=== PATIENT | male | born 1990 | race Caucasian/White ===

== ENCOUNTER 2022-11-20 19:53 | Emergency (ER) | payer MEDICAID, SELFPAY ==
[2022-11-20 20:04] VITALS: BP 160/105; PULSE 133; RESP 18; TEMP 36.6; O2SAT 97; BMI 21.7
--- NOTE | 2022-11-20 20:07 | ED_ITS ---
HPI - General Adult General Chief complaint: ETOH/Substance Use Stated complaint: Alcohol Withdrawal Time Seen by Provider: 11/20/22 22:13 Source: patient Mode of arrival: ambulatory Limitations: no limitations History of Present Illness HPI narrative: Patient with history of alcoholism with strong family history of alcoholism in family , both parents are alcoholic was sober for about 5 years restarted drinking since 03/25 feels stressed at work makes him drink drinking whiskey about 10-12 shots a day and for the last 12 days been drinking heavy last drink was 14:00 as he wants to stop drinking now was little jittery when he arrived received Ativan 2 mg p.o. history of alcohol withdrawal in the past+ no history of DTs or seizure Related Data Previous Rx's Medication Instructions Recorded lorazepam 1 mg tablet (Ativan) 1 mg PO Q4-6H PRN alcohol 11/21/22 withdrawal #20 tabs thiamine HCl (vitamin B1) 100 mg 100 mg PO DAILY #30 tabs 11/21/22 tablet Allergies Allergy/AdvReac Type Severity Reaction Status Date / Time No Known Allergies Allergy Verified 11/20/22 20:06 Review of Systems Review of Systems: Yes all other systems are reviewed and are negative [facility] Social History Social History Alcohol intake: current Alcohol intake frequency: 3 or more drinks per day Alcohol type: hard liquor Smoked in Last 30 Days: Yes Use of substances other than those prescribed or required for medical reasons: Yes Substance Use Type: Marijuana Advance Directives: No Advance Directives Information Provided: No Physical Exam ED Vital Signs: Vital Signs - 24 hr 11/20/22 20:04 11/20/22 21:42 11/20/22 22:20 Temperature 98 F Pulse Rate 133 H 98 88 Respiratory Rate 18 15 131 H Blood Pressure 160/105 H 142/97 H 136/90 H Pulse Oximetry 97 97 96 Oxygen Delivery Method Room Air Room Air 11/20/22 23:55 11/21/22 01:01 Temperature 97.9 F Pulse Rate 110 H 76 Respiratory Rate 22 H 20 Blood Pressure 147/98 H 112/68 Pulse Oximetry 97 95 Oxygen Delivery Method Room Air BMI result Body Mass Index 21.7 Appearance: Alert. Oriented X3. No acute distress. Slightly anxious Eyes: PERRLA, No Nystagmus ENT: Pharynx normal. Oral Mucosa moist Neck: Normal inspection. Neck supple. CVS: Normal heart rate and rhythm. Pulses normal. Respiratory: No respiratory distress. Equal air entry bilateral, no wheezing/rales/rhonchi Abdomen: Soft and nontender. Bowel sounds are present, no mass palpable, no CVA tenderness Skin: Skin warm and dry. Normal skin color. Normal skin turgor. Extremities: No lower extremity edema. No calf tenderness Neuro: Oriented X 3. No motor deficit. No sensory deficit.No cerebellar signs , cranial nerves II-XII intact Course Course Course Narrative: RME- 32 year old male presents for evaluation of alcohol withdrawal. He reports his last drink was 7 hours ago. He reports drinking 10-12 minute per day. He is tachycardic to 130, hypertensive to 160/105. However he appears generally well. Plan for labs, drug screen Medications Administered Discontinued Medications Generic Name Dose Route Start Last Admin Trade Name Freq PRN Reason Stop Dose Admin Sodium Chloride 1,000 mls @ 999 mls/hr 11/20/22 22:29 11/21/22 01:01 Ns IV 11/20/22 23:29 Infused .Q1H1M ONE Infusion Lorazepam 2 mg 11/20/22 21:59 11/20/22 22:03 Lorazepam 1 Mg Tablet PO 11/20/22 22:00 2 mg ONCE ONE Administration Medical Decision Making Medical Decision Making [facility] Narrative: Patient alcoholic and mild withdrawal with CIWA scale of 7 on arrival improved after Ativan to at this time of evaluation patient walking steady gait does not want to go to detox would like to stop drinking and would like to take Ativan as needed patient feels comfortable in doing this office on discharge patient home on Ativan also will give him prescription of thiamine Lab Data [facility] Lab Attestation statement: I reviewed the patient's lab results. 11/20/22 20:32 11/20/22 20:32 Labs: Lab Results 11/20/22 11/20/22 11/20/22 Range/Units 20:32 20:32 20:32 WBC 4.8 (4.8-10.8) X10*3/uL RBC 5.06 (4.60-5.80) X10*6/uL Hgb 15.4 (14.0-18.0) g/dl Hct 44.7 (42.0-52.0) % MCV 88.3 (80.0-98.0) fL MCH 30.4 (27.0-33.0) pg MCHC 34.5 (31.0-36.0) g/dl RDW 12.9 (11.0-16.0) % Plt Count 207 (160-400) X10*3/uL MPV 9.9 (9.4-12.4) fL Immature Gran % (Auto) 0.2 (0.0-0.4) % Neut % (Auto) 41.3 L (45-73) % Lymph % (Auto) 40.2 H (20-40) % [place] % (Auto) 11.7 H (2-11) % Eos % (Auto) 5.6 H (0-4) % Baso % (Auto) 1.0 (0-2) % Lymph # (Auto) 1.9 (1.2-4.9) X10*3/uL [place] # (Auto) 0.6 (0.1-1.2) X10*3/uL Eos # (Auto) 0.3 (0.0-0.4) X10*3/uL Baso # (Auto) 0.1 (0.0-0.2) X10*3/uL Abs Immat Gran (auto) 0.01 (0.00-0.03) X10*3/uL Absolute Neuts (auto) 2.0 (2.0-8.3) x10*3/uL Absolute Nucleated RBC 0.000 (0.0-0.012) X10*3/uL Nucleated RBC % (auto) 0.0 (0.0-0.2) /100WBC Sodium 141 (135-145) mmol/L Potassium 3.5 (3.3-5.1) mmol/L Chloride 107 (96-108) mmol/L Carbon Dioxide 22 (22-29) mmol/L Anion Gap 16 (12-20) BUN 6 L (9-16) mg/dL Creatinine 0.88 (0.5-1.4) mg/dL Estim Creat Clear Calc 123.7 Estimated GFR > 60 Random Glucose 126 H (60-115) mg/dL Calcium 9.2 (8.4-10.2) mg/dL Magnesium 2.1 (1.6-2.6) mg/dL Total Bilirubin 0.9 (0.0-1.0) mg/dL AST 60 H (5-37) U/L ALT 27 (0-40) U/L Alkaline Phosphatase 79 (39-117) U/L Total Protein 7.2 (6.5-8.0) g/dL Albumin 4.5 (3.5-5.0) g/dL Lipase 17 (8-78) U/L Urine Opiates Screen (Not Detect) Urine Fentanyl Screen (Not Detect) Ur Barbiturates Screen (Not Detect) Ur Phencyclidine Scrn (Not Detect) Ur Amphetamines Screen (Not Detect) U Benzodiazepines Scrn (Not Detect) Urine Cocaine Screen (Not Detect) U Marijuana (THC) Screen (Not Detect) Ethyl Alcohol 206 mg/dL 11/20/22 Range/Units 22:21 WBC (4.8-10.8) X10*3/uL RBC (4.60-5.80) X10*6/uL Hgb (14.0-18.0) g/dl Hct (42.0-52.0) % MCV (80.0-98.0) fL MCH (27.0-33.0) pg MCHC (31.0-36.0) g/dl RDW (11.0-16.0) % Plt Count (160-400) X10*3/uL MPV (9.4-12.4) fL Immature Gran % (Auto) (0.0-0.4) % Neut % (Auto) (45-73) % Lymph % (Auto) (20-40) % [place] % (Auto) (2-11) % Eos % (Auto) (0-4) % Baso % (Auto) (0-2) % Lymph # (Auto) (1.2-4.9) X10*3/uL [place] # (Auto) (0.1-1.2) X10*3/uL Eos # (Auto) (0.0-0.4) X10*3/uL Baso # (Auto) (0.0-0.2) X10*3/uL Abs Immat Gran (auto) (0.00-0.03) X10*3/uL Absolute Neuts (auto) (2.0-8.3) x10*3/uL Absolute Nucleated RBC (0.0-0.012) X10*3/uL Nucleated RBC % (auto) (0.0-0.2) /100WBC Sodium (135-145) mmol/L Potassium (3.3-5.1) mmol/L Chloride (96-108) mmol/L Carbon Dioxide (22-29) mmol/L Anion Gap (12-20) BUN (9-16) mg/dL Creatinine (0.5-1.4) mg/dL Estim Creat Clear Calc Estimated GFR Random Glucose (60-115) mg/dL Calcium (8.4-10.2) mg/dL Magnesium (1.6-2.6) mg/dL Total Bilirubin (0.0-1.0) mg/dL AST (5-37) U/L ALT (0-40) U/L Alkaline Phosphatase (39-117) U/L Total Protein (6.5-8.0) g/dL Albumin (3.5-5.0) g/dL Lipase (8-78) U/L Urine Opiates Screen Not Detected (Not Detect) Urine Fentanyl Screen Not Detected (Not Detect) Ur Barbiturates Screen Not Detected (Not Detect) Ur Phencyclidine Scrn Not Detected (Not Detect) Ur Amphetamines Screen Not Detected (Not Detect) U Benzodiazepines Scrn Not Detected (Not Detect) Urine Cocaine Screen Not Detected (Not Detect) U Marijuana (THC) Screen Not Detected (Not Detect) Ethyl Alcohol mg/dL Discharge Plan Discharge Clinical Impression: Alcohol withdrawal syndrome Patient Disposition: Home, Self-Care Instructions: Abuse of Alcohol (ED) Additional Instructions: Stop drinking alcohol Take Ativan 1 tablet every 4-6 hour as needed for alcohol withdrawal also start taking thiamine 100 mg daily Follow-up with detox Prescriptions: New lorazepam [Ativan] 1 mg tablet 1 mg PO Q4-6H PRN (Reason: alcohol withdrawal) Qty: 20 0RF thiamine HCl (vitamin B1) 100 mg tablet 100 mg PO DAILY Qty: 30 0RF
--- NOTE | 2022-11-20 20:09 | ECG_ITS ---
Test Reason : GENERAL MEDICAL Blood Pressure : / mmHG Vent. Rate : 111 BPM Atrial Rate : 111 BPM P-R Int : 148 ms QRS Dur : 084 ms QT Int : 320 ms P-R-T Axes : 055 028 018 degrees QTc Int : 435 ms Sinus tachycardia Otherwise normal ECG No previous ECGs available Referred By: Ángel Mendoza Electronically Signed By:RICH RALPH
--- NOTE | 2022-11-20 20:36 | PC.NURSE ---
IV established, labs obtained. EKG obtained at bedside. Awaiting primary MD nesbitt.
[2022-11-20 20:37] LABS: MANUAL DIFF FLAG NO
[2022-11-20 20:52] LABS: Ethanol 206 mg/dL
[2022-11-20 20:53] LABS: Basophils Absolute Auto 0.1 X10*3/uL (0.0-0.2); Eosinophils Absolute Auto 0.3 X10*3/uL (0.0-0.4); Eosinophils Percent Auto 5.6 % (0-4); Hematocrit 44.7 % (42.0-52.0); Hemoglobin 15.4 g/dl (14.0-18.0); Imm Gran Abs Auto 0.01 X10*3/uL (0.00-0.03); Imm Gran Pct Auto 0.2 % (0.0-0.4); Lymphocytes Absolute Auto 1.9 X10*3/uL (1.2-4.9); Lymphocytes Percent Auto 40.2 % (20-40); Mean Corpuscular HGB Conc 34.5 g/dl (31.0-36.0); Mean Corpuscular Hemoglobin 30.4 pg (27.0-33.0); Mean Corpuscular Volume 88.3 fL (80.0-98.0); Mean Platelet Volume 9.9 fL (9.4-12.4); Monocytes Absolute Auto 0.6 X10*3/uL (0.1-1.2); Monocytes Percent Auto 11.7 % (2-11); Neutrophils Percent Auto 41.3 % (45-73); Platelet Count 207 X10*3/uL (160-400); Red Blood Count 5.06 X10*6/uL (4.60-5.80); Red Cell Distribution Width 12.9 % (11.0-16.0); White Blood Count 4.8 X10*3/uL (4.8-10.8)
[2022-11-20 20:54] LABS: Alanine Aminotransferase 27 U/L (0-40); Albumin Level 4.5 g/dL (3.5-5.0); Alkaline Phosphatase 79 U/L (39-117); Anion Gap 16 (12-20); Aspartate Amino Transferase 60 U/L (5-37); Bilirubin Total 0.9 mg/dL (0.0-1.0); Blood Urea Nitrogen 6 mg/dL (9-16); Calcium 9.2 mg/dL (8.4-10.2); Carbon Dioxide 22 mmol/L (22-29); Chloride 107 mmol/L (96-108); Creatinine Clr Calc Pharmacy 123.7; Estimated Glomerular Filt Rate > 60; Glucose Random 126 mg/dL (60-115); Lipase 17 U/L (8-78); Potassium 3.5 mmol/L (3.3-5.1); Sodium 141 mmol/L (135-145); Total Protein 7.2 g/dL (6.5-8.0)
--- NOTE | 2022-11-20 20:56 | PC.NURSE ---
Assumed care of pt. Pt on stretcher, no acute distress at this time. pt watching television. Plan for assessment.
--- NOTE | 2022-11-20 21:41 | MHC.RECOVSUP ---
? Reason for consult:ETOH o? Current location:ED04? o? Identified substance use concern:? -? Seeking ATS (detox) ? Intervention: o? ATS bed search started/completed/in process o? Community resources provided ? Plan: o ATS ? Additional information:RC met this pt and discussed treatment, pt is interested in ATS, RC started the bedsearch, there are no beds tonight, please continue bedsearch tomorrow. [facility], no beds are available at this time.
[2022-11-20 21:42] VITALS: BP 142/97; PULSE 98; RESP 15; O2SAT 97
[2022-11-20] MEDS: LORazepam 1 MG TABLET 2 MG PO (22:03)
[2022-11-20 22:20] VITALS: BP 136/90; PULSE 88; RESP 131; O2SAT 96
[2022-11-20 22:40] LABS: Amphetamine Screen Urine Not Detected (Not Detect); Barbiturates, Urine Not Detected (Not Detect); Benzodiazepines Screen Urine Not Detected (Not Detect); Cannabinoid Screen Urine Not Detected (Not Detect); Cocaine Screen Urine Not Detected (Not Detect); Fentanyl, urine Not Detected (Not Detect); Opiate Screen Urine Not Detected (Not Detect); Phencyclidine Screen Urine Not Detected (Not Detect)
[2022-11-20 22:46] LABS: Magnesium 2.1 mg/dL (1.6-2.6)
[2022-11-20 23:55] VITALS: BP 147/98; PULSE 110; RESP 22; TEMP 36.6; O2SAT 97
--- NOTE | 2022-11-20 23:56 | MHC.EDTECH ---
This tech assumed care of pt at 2300, Vitals taken,pt is resting comfortably at this time. Call villela within reach
[2022-11-21] MEDS: 0.9 % Sodium Chloride 1,000 ML 999 ML IV (00:05)
--- NOTE | 2022-11-21 00:10 | PC.NURSE ---
on reassessment, pt stating feela improved after aministered medications. Requesting D/C after IVF completed. MD notified.
[2022-11-21 01:01] VITALS: BP 112/68; PULSE 76; RESP 20; O2SAT 95
--- NOTE | 2022-11-21 01:12 | PC.NURSE ---
pt mbulation trial, steady gait, no deficits. AxO x4, pt cleared for D/C by .
== END 2022-11-21 01:17 | disposition home or self-care (01) ==
PROVIDERS: Physician Assistant; Emergency Provider Internal Medicine; PCP Internal Medicine
DX: F10.239 Alcohol dependence with withdrawal, unspecified (principal); Y90.7 Blood alcohol level of 200-239 mg/100 ml; R00.0 Tachycardia, unspecified; Z79.899 Other long term (current) drug therapy
CPT/HCPCS: 36415; 80053; 80307; 83690; 83735; 85025; 93005; 96360; 99284; 99285

== ENCOUNTER 2022-11-29 03:50 | Emergency (ER) | payer MEDICAID, SELFPAY ==
--- NOTE | 2022-11-29 | ECG_ITS ---
Test Reason : DETOX Blood Pressure : / mmHG Vent. Rate : 056 BPM Atrial Rate : 056 BPM P-R Int : 146 ms QRS Dur : 082 ms QT Int : 390 ms P-R-T Axes : 005 031 034 degrees QTc Int : 376 ms Sinus bradycardia Otherwise normal ECG When compared with ECG of 20-NOV-2022 20:27, Vent. rate has decreased BY 55 BPM Referred By: Generic ED Physician Electronically Signed By:Mckinley Dial
[2022-11-29 03:52] VITALS: BP 142/86; PULSE 63; RESP 18; TEMP 36.1; O2SAT 100; BMI 20.3
[2022-11-29 04:16] VITALS: BP 131/85; PULSE 56; RESP 16; TEMP 36.8; O2SAT 98
[2022-11-29 04:34] LABS: Basophils Percent Auto 0.7 % (0-2); Eosinophils Absolute Auto 0.2 X10*3/uL (0.0-0.4); Eosinophils Percent Auto 5.7 % (0-4); Hematocrit 47.8 % (42.0-52.0); Hemoglobin 16.2 g/dl (14.0-18.0); Imm Gran Abs Auto 0.02 X10*3/uL (0.00-0.03); Imm Gran Pct Auto 0.5 % (0.0-0.4); Lymphocytes Absolute Auto 1.4 X10*3/uL (1.2-4.9); Lymphocytes Percent Auto 33.3 % (20-40); MANUAL DIFF FLAG NO; Mean Corpuscular HGB Conc 33.9 g/dl (31.0-36.0); Mean Corpuscular Hemoglobin 29.8 pg (27.0-33.0); Mean Platelet Volume 9.7 fL (9.4-12.4); Monocytes Absolute Auto 0.5 X10*3/uL (0.1-1.2); Monocytes Percent Auto 11.8 % (2-11); Platelet Count 181 X10*3/uL (160-400); Red Blood Count 5.43 X10*6/uL (4.60-5.80); Red Cell Distribution Width 12.7 % (11.0-16.0); White Blood Count 4.2 X10*3/uL (4.8-10.8)
[2022-11-29 04:39] VITALS: BP 124/86; PULSE 59; RESP 14; TEMP 36.7; O2SAT 98
[2022-11-29 04:47] LABS: COVID-19 Test Negative (Negative); IDNOW Serial# BCCEAD1C
[2022-11-29 04:49] LABS: Appearance Urine Clear; Color Urine Yellow; Glucose Urine UA Negative (Negative); Leukocyte Esterase Urine Negative (Negative); Nitrite Urine Negative (Negative); Specific Gravity - Urine <= 1.005 (1.005-1.025); Urine Blood Negative (Negative); Urine Ketones Negative (Negative); Urine Protein Negative (Neg-Trace)
--- NOTE | 2022-11-29 04:49 | PC.NURSE ---
Pt arrive to ED c/o headache 12/10 pain, anxiety and unable to sleep for 2days. Last drink was 11/20/2022, declines hx of seizures/withdrawl. Pt alert and oriented x 4, denies n/v/hallucinations/tactile disturbance, no tremors noted. EKG complete, labs and urine sent to lab. Pt waiting to be seen by provider at this time, oriented to room, call villela given.
[2022-11-29 04:50] LABS: Amphetamine Screen Urine Not Detected (Not Detect); Barbiturates, Urine Not Detected (Not Detect); Benzodiazepines Screen Urine Not Detected (Not Detect); Cannabinoid Screen Urine Not Detected (Not Detect); Cocaine Screen Urine Not Detected (Not Detect); Fentanyl, urine Not Detected (Not Detect); Opiate Screen Urine Not Detected (Not Detect); Phencyclidine Screen Urine Not Detected (Not Detect)
[2022-11-29 04:52] LABS: Alanine Aminotransferase 22 U/L (0-40); Albumin Level 4.8 g/dL (3.5-5.0); Alkaline Phosphatase 77 U/L (39-117); Anion Gap 14 (12-20); Aspartate Amino Transferase 23 U/L (5-37); Bilirubin Total 1.1 mg/dL (0.0-1.0); Blood Urea Nitrogen 9 mg/dL (9-16); Calcium 10.3 mg/dL (8.4-10.2); Carbon Dioxide 25 mmol/L (22-29); Chloride 106 mmol/L (96-108); Creatinine Clr Calc Pharmacy 125.9; Estimated Glomerular Filt Rate > 60; Ethanol < 10 mg/dL; Glucose Random 101 mg/dL (60-115); Potassium 3.9 mmol/L (3.3-5.1); Sodium 141 mmol/L (135-145); Total Protein 7.5 g/dL (6.5-8.0)
--- NOTE | 2022-11-29 15:53 | ED_ITS ---
HPI - Psych General Chief Complaint: ETOH/Substance Use Stated Complaint: can't sleep, migraine Time Seen by Provider: 11/29/22 05:34 Source: patient Mode of arrival: ambulatory Limitations: no limitations History of Present Illness HPI Narrative: 32 y/o male who presented to the emergency department for evaluation insomnia, restlessness and anxiety times two days. The patient was seen in the emergency department on 11/20/2022 for alcohol withdrawal. At that time he reported drinking 12 nips of alcohol per day. He was treated with Ativan in the ED and discharge to home with a prescription for Ativan 1 mg pills every 4-6 hours as needed for withdrawal symptoms. He was dispensed 20 pills. He states that he has completed his Ativan and has not had any alcoholic beverages since his last visit. He states that he is having difficulty sleeping at night. He states that he gets about two to three hours of sleep. He states he's feeling very anxious. He also states this feeling depressed. He denies suicidal or homicidal ideation. The patient states that he has been on antidepressants in the past but they made him gain weight and this made him more depressed therefore he is not on any antidepressants and is not interested in being treated with antidepressants. Related Data Previous Rx's Medication Instructions Recorded lorazepam 1 mg tablet (Ativan) 1 mg PO Q4-6H PRN alcohol 11/21/22 withdrawal #20 tabs thiamine HCl (vitamin B1) 100 mg 100 mg PO DAILY #30 tabs 11/21/22 tablet Allergies Allergy/AdvReac Type Severity Reaction Status Date / Time No Known Allergies Allergy Verified 11/20/22 20:06 Review of Systems Review of Systems: Yes all other systems are reviewed and are negative [facility] Past Medical History [facility] Narrative: PMH:Alcohol use disorder, depression, anxiety. SHX: He smokes 10 cigarettes per day. He drinks 12 nips of liquor per day but stoped drinking since 11/20/22. He denied drug use. Social History Social History Alcohol intake: current Alcohol intake frequency: 3 or more drinks per day Alcohol type: hard liquor Smoked in Last 30 Days: Yes Use of substances other than those prescribed or required for medical reasons: No Substance Use Type: Marijuana Advance Directives: No Advance Directives Information Provided: No Physical Exam Vital Signs: Vital Signs: Last Vital Signs Temp 98.0 F 11/29/22 04:39 Pulse 59 11/29/22 04:39 Resp 14 11/29/22 04:39 BP 124/86 11/29/22 04:39 Pulse Ox 98 11/29/22 04:39 O2 Del Method Room Air 11/29/22 04:39 BMI result Body Mass Index 20.3 Vital signs were normal General: Awake, alert in no distress Head: Normocephalic, atraumatic EENT: PERRL, Lids normal, sclera normal, conjunctiva normal, nose normal , ears normal, throat without erythema or exudates Neck: Supple, no adenopathy, trachea midline and nontender Lung: breath sounds symmetric, no wheezing, rales or rhonchi Chest: symmetric movement, nontender Heart: regular rate and rhythm, normal S1, S2 no murmurs or rubs Abdomen: soft, non-tender, nondistended, normal bowel sounds Back: no vertebral tenderness, no CVAT Extremities: no deformities, moves all extremities symmetrically Skin: no rashes, no lesion, normal color and warmth Neuro: Awake, alert, oriented, normal speech, cranial nerves intact, moves all extremities symmetrically Psych: Pleasant, cooperative Medical Decision Making Medical Decision Making MDM Narrative: 32 y/o male who presented to the emergency department for evaluation insomnia, restlessness and anxiety times two days. The patient was seen in the emergency department on 11/20/2022 for alcohol withdrawal. He was discharge to home with a prescription for Ativan 1 mg pills every 4-6 hours as needed for withdrawal symptoms. He has not drank alcohol since then. He denied SI or HI. I ordered a CBC, CMP, EtOH level, UA, Utox, COVID 19. 0700: The patient's work up was negative suggesting a psychiatric cause for his insomnia and anxiety. I did offer to start trazadone for depression and insomnia but he refused this treatment. He has been on hydroxyzine in the past therefore I gave him an Rx for hydroxyzine 100 mg at night as needed for insomnia He does not want detox at this time. He was advised to seek help at [facility] for depression and anxiety. 1613: Unexpected downtime at the end of my shift, therefore patient was given paper d/c instructions and paper Rx Differential Diagnosis Differential Diagnoses: The differential diagnosis associated with the presentation includes SI, HI, Depression, EtOH intoxication, poly substance use, anemia, electrolyte abnormalities Admission/Observation Consideration of admission/observation: Escalation of care including admission/o bservation considered Lab Data MDM Lab Attestation statement: I reviewed the patient's lab results. My interpertion of the patient's labs are as follows. CBC, CMP is normal. Urine tox was negative. EtOH level was below detectable limits. COVId was negative. These negative tests are reassuring and suggest psychatric cause as for his insomnia. 11/29/22 04:26 11/29/22 04:26 Labs: Lab Results 11/29/22 11/29/22 11/29/22 Range/Units 04:26 04:26 04:26 WBC 4.2 L (4.8-10.8) X10*3/uL RBC 5.43 (4.60-5.80) X10*6/uL Hgb 16.2 (14.0-18.0) g/dl Hct 47.8 (42.0-52.0) % MCV 88.0 (80.0-98.0) fL MCH 29.8 (27.0-33.0) pg MCHC 33.9 (31.0-36.0) g/dl RDW 12.7 (11.0-16.0) % Plt Count 181 (160-400) X10*3/uL MPV 9.7 (9.4-12.4) fL Immature Gran % (Auto) 0.5 H (0.0-0.4) % Neut % (Auto) 48.0 (45-73) % Lymph % (Auto) 33.3 (20-40) % [place] % (Auto) 11.8 H (2-11) % Eos % (Auto) 5.7 H (0-4) % Baso % (Auto) 0.7 (0-2) % Lymph # (Auto) 1.4 (1.2-4.9) X10*3/uL [place] # (Auto) 0.5 (0.1-1.2) X10*3/uL Eos # (Auto) 0.2 (0.0-0.4) X10*3/uL Baso # (Auto) 0.0 (0.0-0.2) X10*3/uL Abs Immat Gran (auto) 0.02 (0.00-0.03) X10*3/uL Absolute Neuts (auto) 2.0 (2.0-8.3) x10*3/uL Absolute Nucleated RBC 0.000 (0.0-0.012) X10*3/uL Nucleated RBC % (auto) 0.0 (0.0-0.2) /100WBC Sodium 141 (135-145) mmol/L Potassium 3.9 (3.3-5.1) mmol/L Chloride 106 (96-108) mmol/L Carbon Dioxide 25 (22-29) mmol/L Anion Gap 14 (12-20) BUN 9 (9-16) mg/dL Creatinine 0.81 (0.5-1.4) mg/dL Estim Creat Clear Calc 125.9 Estimated GFR > 60 Random Glucose 101 (60-115) mg/dL Calcium 10.3 H D (8.4-10.2) mg/dL Total Bilirubin 1.1 H (0.0-1.0) mg/dL AST 23 (5-37) U/L ALT 22 (0-40) U/L Alkaline Phosphatase 77 (39-117) U/L Total Protein 7.5 (6.5-8.0) g/dL Albumin 4.8 (3.5-5.0) g/dL Urine Color Urine Appearance Urine pH (5.0-9.0) Ur Specific [place] (1.005-1.025) Urine Protein (Neg-Trace) mg/dL Urine Glucose (UA) (Negative) mg/dL Urine Ketones (Negative) mg/dL Urine Blood (Negative) Urine Nitrite (Negative) Ur Leukocyte Esterase (Negative) Urine Opiates Screen (Not Detect) Urine Fentanyl Screen (Not Detect) Ur Barbiturates Screen (Not Detect) Ur Phencyclidine Scrn (Not Detect) Ur Amphetamines Screen (Not Detect) U Benzodiazepines Scrn (Not Detect) Urine Cocaine Screen (Not Detect) U Marijuana (THC) Screen (Not Detect) Ethyl Alcohol < 10 mg/dL COVID-19 (JUANY) Negative (Negative) COVID-19 Clin Com See Note 11/29/22 11/29/22 Range/Units 04:26 04:40 WBC (4.8-10.8) X10*3/uL RBC (4.60-5.80) X10*6/uL Hgb (14.0-18.0) g/dl Hct (42.0-52.0) % MCV (80.0-98.0) fL MCH (27.0-33.0) pg MCHC (31.0-36.0) g/dl RDW (11.0-16.0) % Plt Count (160-400) X10*3/uL MPV (9.4-12.4) fL Immature Gran % (Auto) (0.0-0.4) % Neut % (Auto) (45-73) % Lymph % (Auto) (20-40) % [place] % (Auto) (2-11) % Eos % (Auto) (0-4) % Baso % (Auto) (0-2) % Lymph # (Auto) (1.2-4.9) X10*3/uL [place] # (Auto) (0.1-1.2) X10*3/uL Eos # (Auto) (0.0-0.4) X10*3/uL Baso # (Auto) (0.0-0.2) X10*3/uL Abs Immat Gran (auto) (0.00-0.03) X10*3/uL Absolute Neuts (auto) (2.0-8.3) x10*3/uL Absolute Nucleated RBC (0.0-0.012) X10*3/uL Nucleated RBC % (auto) (0.0-0.2) /100WBC Sodium (135-145) mmol/L Potassium (3.3-5.1) mmol/L Chloride (96-108) mmol/L Carbon Dioxide (22-29) mmol/L Anion Gap (12-20) BUN (9-16) mg/dL Creatinine (0.5-1.4) mg/dL Estim Creat Clear Calc Estimated GFR Random Glucose (60-115) mg/dL Calcium (8.4-10.2) mg/dL Total Bilirubin (0.0-1.0) mg/dL AST (5-37) U/L ALT (0-40) U/L Alkaline Phosphatase (39-117) U/L Total Protein (6.5-8.0) g/dL Albumin (3.5-5.0) g/dL Urine Color Yellow Urine Appearance Clear Urine pH 6.0 (5.0-9.0) Ur Specific [place] <= 1.005 (1.005-1.025) Urine Protein Negative (Neg-Trace) mg/dL Urine Glucose (UA) Negative (Negative) mg/dL Urine Ketones Negative (Negative) mg/dL Urine Blood Negative (Negative) Urine Nitrite Negative (Negative) Ur Leukocyte Esterase Negative (Negative) Urine Opiates Screen Not Detected (Not Detect) Urine Fentanyl Screen Not Detected (Not Detect) Ur Barbiturates Screen Not Detected (Not Detect) Ur Phencyclidine Scrn Not Detected (Not Detect) Ur Amphetamines Screen Not Detected (Not Detect) U Benzodiazepines Scrn Not Detected (Not Detect) Urine Cocaine Screen Not Detected (Not Detect) U Marijuana (THC) Screen Not Detected (Not Detect) Ethyl Alcohol mg/dL COVID-19 (JUANY) (Negative) COVID-19 Clin Com Prescription Management antidepressant medications Chronic Conditions Alcohol use disorder, depression and anxiety Social Determinants Patient?s care significantly limited by Social Determinants of Health including: Other Social Determinant of Health (alcohol use disorder) Discharge Plan Discharge Clinical Impression: Insomnia, Depression, Alcohol use disorder Patient Disposition: Home, Self-Care Prescriptions: No Action lorazepam [Ativan] 1 mg tablet 1 mg PO Q4-6H PRN (Reason: alcohol withdrawal) Qty: 20 0RF thiamine HCl (vitamin B1) 100 mg tablet 100 mg PO DAILY Qty: 30 0RF Discharge Date/Time: 11/29/22 07:00
== END 2022-11-29 07:00 | disposition home or self-care (01) ==
PROVIDERS: Emergency Provider Emergency Medicine Emergency Medical Services
DX: G47.00 Insomnia, unspecified (principal); F33.1 Major depressive disorder, recurrent, moderate; F10.10 Alcohol abuse, uncomplicated; Y90.0 Blood alcohol level of less than 20 mg/100 ml; Z20.822 Contact with and (suspected) exposure to COVID-19; Z20.828 Contact with and (suspected) exposure to other viral communicable diseases; Z79.899 Other long term (current) drug therapy
CPT/HCPCS: 80053; 80307; 81003; 85025; 87635; 93005; 99284; 99285

== ENCOUNTER 2023-02-03 04:21 | Emergency (ER) | payer MEDICAID, SELFPAY ==
--- NOTE | ~2023-02-03 | US_ITS ---
EXAMINATION: US SCROTUM CLINICAL INFORMATION: Pain. COMPARISON: None available. TECHNIQUE: A sonogram of the scrotum was performed assessing le-scale appearance and color Doppler flow. Spectral Doppler analysis of the arterial and venous flow were performed in the testes bilaterally. FINDINGS: RIGHT: Right testicle measures 4.9 x 2.0 x 3.0 cm, volume 14.8 mL. No focal testicular parenchymal lesions are visualized. Spectral Doppler analysis of the arterial and venous flow is normal in the right testis. There is a 4 mm right epididymal head cyst. No right hydrocele or varicocele is seen. Right epididymal Doppler flow is normal. LEFT: Left testicle measures 4.8 x 1.9 x 3.0 cm, volume 14.8 mL. No focal testicular parenchymal lesions are visualized. Spectral Doppler analysis of the arterial and venous flow is normal in the left testis. Left epididymal head is normal in size. No left hydrocele or varicocele is seen. Left epididymal Doppler flow is normal. US/US scrotum doppler IMPRESSION: Normal testicles.
--- NOTE | ~2023-02-03 | US_ITS ---
EXAMINATION: US SCROTUM CLINICAL INFORMATION: Pain. COMPARISON: None available. TECHNIQUE: A sonogram of the scrotum was performed assessing le-scale appearance and color Doppler flow. Spectral Doppler analysis of the arterial and venous flow were performed in the testes bilaterally. FINDINGS: RIGHT: Right testicle measures 4.9 x 2.0 x 3.0 cm, volume 14.8 mL. No focal testicular parenchymal lesions are visualized. Spectral Doppler analysis of the arterial and venous flow is normal in the right testis. There is a 4 mm right epididymal head cyst. No right hydrocele or varicocele is seen. Right epididymal Doppler flow is normal. LEFT: Left testicle measures 4.8 x 1.9 x 3.0 cm, volume 14.8 mL. No focal testicular parenchymal lesions are visualized. Spectral Doppler analysis of the arterial and venous flow is normal in the left testis. Left epididymal head is normal in size. No left hydrocele or varicocele is seen. Left epididymal Doppler flow is normal. US/US scrotum IMPRESSION: Normal testicles.
[2023-02-03 04:28] VITALS: BP 155/112; PULSE 113; RESP 19; TEMP 36.6; O2SAT 97; BMI 24.7
[2023-02-03 04:45] VITALS: BP 138/92; PULSE 99; RESP 16; TEMP 36.8; O2SAT 100
--- NOTE | 2023-02-03 05:06 | ED_ITS ---
HPI - Male Genitourinary General Chief complaint: Urogenital-Male Stated complaint: Testicles pain Time Seen by Provider: 02/03/23 05:06 Source: patient Mode of arrival: ambulatory Limitations: no limitations History of Present Illness HPI Narrative: Patient history of anxiety complaining of pain in left testicle just prior to arrival. A few hours ago patient was seen at [facility] or lower abdominal discomfort and difficulty in urination but patient bladder scan was negative after discharge from the hospital patient noticed pain in the left testicle no nausea no vomiting pain has no relation with posture no swelling of the testicles no penile discharge Related Data Previous Rx's Medication Instructions Recorded lorazepam 1 mg tablet (Ativan) 1 mg PO Q4-6H PRN alcohol 11/21/22 withdrawal #20 tabs thiamine HCl (vitamin B1) 100 mg 100 mg PO DAILY #30 tabs 11/21/22 tablet Allergies Allergy/AdvReac Type Severity Reaction Status Date / Time No Known Allergies Allergy Verified 11/20/22 20:06 Review of Systems Review of Systems: Yes all other systems are reviewed and are negative [facility] Social History Social History Alcohol intake: current Alcohol intake frequency: 3 or more drinks per day Alcohol type: hard liquor Substance Use Type: Marijuana Advance Directives: No Advance Directives Information Provided: Yes Physical Exam Vital Signs: Vital Signs: Last Vital Signs Temp 98.2 F 02/03/23 05:57 Pulse 72 02/03/23 05:57 Resp 18 02/03/23 05:57 BP 128/80 02/03/23 05:57 Pulse Ox 98 02/03/23 05:57 O2 Del Method Room Air 02/03/23 05:57 BMI result Body Mass Index 24.7 Appearance: Alert. Oriented X3. Anxious CVS: Normal heart rate and rhythm. Pulses normal. Respiratory: No respiratory distress. Equal air entry bilateral, Abdomen: Soft and nontender. Bowel sounds are present, no mass palpable, no CVA tenderness : Normal position of testicles cremasteric reflex normal epididymis normal no mass noticed no tenderness of the testicle Skin: Skin warm and dry. Normal skin color. Normal skin turgor. Extremities: No lower extremity edema. No calf tenderness Neuro: Oriented X 3. No motor deficit. Medical Decision Making Medical Decision Making MDM Narrative: Patient ultrasound is negative for torsion or any brow the patient patient home on ibuprofen Differential Diagnosis Differential Diagnoses: The differential diagnosis associated with the presentation includes Testicular torsion/normal exam/epididymitis/varicocele Lab Data [facility] Lab Attestation statement: I reviewed the patient's lab results. Labs: Lab Results 02/03/23 Range/Units 05:18 Urine Color Yellow Urine Appearance Clear Urine pH 6.5 (5.0-9.0) Ur Specific [place] 1.010 (1.005-1.025) Urine Protein Negative (Neg-Trace) mg/dL Urine Glucose (UA) Negative (Negative) mg/dL Urine Ketones Negative (Negative) mg/dL Urine Blood Negative (Negative) Urine Nitrite Negative (Negative) Ur Leukocyte Esterase Negative (Negative) Radiology Impression Discussion of test interpretation with radiology: I have reviewed the radiologist's reading. Discharge Plan Discharge Clinical Impression: Epididymal cyst Patient Disposition: Home, Self-Care Instructions: Testicle Pain (ED) Additional Instructions: No torsion seen neuro ultrasound Take Tylenol/Motrin for pain if any Prescriptions: No Action lorazepam [Ativan] 1 mg tablet 1 mg PO Q4-6H PRN (Reason: alcohol withdrawal) Qty: 20 0RF thiamine HCl (vitamin B1) 100 mg tablet 100 mg PO DAILY Qty: 30 0RF Interventions: ED Discharge Assessment Last Done: 02/03/23 06:22 Discharge Date/Time: 02/03/23 06:23
[2023-02-03 05:25] LABS: Appearance Urine Clear; Color Urine Yellow; Glucose Urine UA Negative (Negative); Leukocyte Esterase Urine Negative (Negative); Nitrite Urine Negative (Negative); PH 6.5 (5.0-9.0); Urine Blood Negative (Negative); Urine Ketones Negative (Negative); Urine Protein Negative (Neg-Trace)
[2023-02-03 05:57] VITALS: BP 128/80; PULSE 72; RESP 18; TEMP 36.8; O2SAT 98
== END 2023-02-03 06:23 | disposition home or self-care (01) ==
PROVIDERS: Emergency Provider Internal Medicine
DX: N50.3 Cyst of epididymis (principal); N50.812 Left testicular pain; N50.811 Right testicular pain; R10.2 Pelvic and perineal pain
CPT/HCPCS: 76870; 81003; 93975; 99283; 99284

== ENCOUNTER 2023-02-17 22:28 | Emergency (ER) | payer MEDICAID, SELFPAY ==
[2023-02-17 22:44] VITALS: BP 144/93; PULSE 116; RESP 20; TEMP 36.2; O2SAT 97; BMI 24.4
[2023-02-17 23:36] LABS: MANUAL DIFF FLAG NO
[2023-02-17 23:45] LABS: Basophils Absolute Auto 0.1 X10*3/uL (0.0-0.2); Basophils Percent Auto 0.5 % (0-2); Eosinophils Absolute Auto 0.3 X10*3/uL (0.0-0.4); Eosinophils Percent Auto 3.3 % (0-4); Hematocrit 48.4 % (42.0-52.0); Imm Gran Abs Auto 0.03 X10*3/uL (0.00-0.03); Imm Gran Pct Auto 0.3 % (0.0-0.4); Lymphocytes Absolute Auto 2.2 X10*3/uL (1.2-4.9); Lymphocytes Percent Auto 22.7 % (20-40); Mean Corpuscular HGB Conc 35.1 g/dl (31.0-36.0); Mean Corpuscular Hemoglobin 30.1 pg (27.0-33.0); Mean Corpuscular Volume 85.7 fL (80.0-98.0); Mean Platelet Volume 9.8 fL (9.4-12.4); Monocytes Absolute Auto 0.6 X10*3/uL (0.1-1.2); Monocytes Percent Auto 6.5 % (2-11); Neutrophils Absolute Auto 6.3 x10*3/uL (2.0-8.3); Neutrophils Percent Auto 66.7 % (45-73); Platelet Count 241 X10*3/uL (160-400); Red Blood Count 5.65 X10*6/uL (4.60-5.80); Red Cell Distribution Width 12.3 % (11.0-16.0); White Blood Count 9.5 X10*3/uL (4.8-10.8)
[2023-02-17 23:46] LABS: Appearance Urine Clear; Color Urine Yellow; Glucose Urine UA Negative (Negative); Leukocyte Esterase Urine Negative (Negative); Nitrite Urine Negative (Negative); Specific Gravity - Urine <= 1.005 (1.005-1.025); UMIC TRIGGER UACC YES; Urine Blood Trace (Negative); Urine Ketones Negative (Negative); Urine Protein Negative (Neg-Trace)
[2023-02-17 23:51] LABS: Bacteria Urine None Seen (None Seen); Hyaline Casts Urine 0-2 /LPF (0-2); RBC Urine 0-2 /HPF (0-2); Squamous Epithelial Cell Urine 0-2 /HPF (0-2); WBC Urine 0-5 /HPF (0-5)
[2023-02-17 23:55] LABS: Amphetamine Screen Urine Not Detected (Not Detect); Barbiturates, Urine Not Detected (Not Detect); Benzodiazepines Screen Urine Not Detected (Not Detect); Cannabinoid Screen Urine Not Detected (Not Detect); Cocaine Screen Urine Not Detected (Not Detect); Fentanyl, urine Not Detected (Not Detect); Opiate Screen Urine Not Detected (Not Detect); Phencyclidine Screen Urine Not Detected (Not Detect)
[2023-02-17 23:58] LABS: Alanine Aminotransferase 17 U/L (0-40); Alkaline Phosphatase 83 U/L (39-117); Anion Gap 18 (12-20); Aspartate Amino Transferase 20 U/L (5-37); Bilirubin Total 0.5 mg/dL (0.0-1.0); Blood Urea Nitrogen 11 mg/dL (9-16); Calcium 9.7 mg/dL (8.4-10.2); Carbon Dioxide 22 mmol/L (22-29); Chloride 104 mmol/L (96-108); Creatinine Clr Calc Pharmacy 136.9; Estimated Glomerular Filt Rate > 60; Ethanol 290 mg/dL; Glucose Random 109 mg/dL (60-115); Magnesium 2.4 mg/dL (1.6-2.6); Potassium 3.6 mmol/L (3.3-5.1); Sodium 140 mmol/L (135-145); Total Protein 8.1 g/dL (6.5-8.0)
--- NOTE | 2023-02-18 01:19 | ED.ALCOHOL ---
HPI - Alcohol General Chief Complaint: ETOH/Substance Use Stated Complaint: Alcohol Withdrawal Time Seen by Provider: 02/18/23 01:10 Source: patient Mode of arrival: ambulatory Limitations: no limitations History of Present Illness HPI narrative: 32-year-old male with a history of alcohol use disorder who presents emergency department for evaluation of alcohol withdrawal. Patient states his last drink was 12 hours prior. He states that he drink [place] whiskey, 10 nips today. Patient states he feels like he is withdrawing, he is tremulous, he has nausea with no vomiting. Patient states that he does have a detox program that he get into tomorrow and he would like to get some medicine this evening that does not withdraw prior to going to detox. He denied fever, chills, chest pain, shortness of breath. Denied nausea, vomiting, dark tarry stools or bloody stools. Related Data Previous Rx's Medication Instructions Recorded lorazepam 1 mg tablet (Ativan) 1 mg PO Q4-6H PRN alcohol 11/21/22 withdrawal #20 tabs thiamine HCl (vitamin B1) 100 mg 100 mg PO DAILY #30 tabs 11/21/22 tablet Allergies Allergy/AdvReac Type Severity Reaction Status Date / Time No Known Allergies Allergy Verified 02/17/23 22:44 Review of Systems Review of Systems: Yes all other systems are reviewed and are negative [facility] Social History Social History Alcohol intake: current Alcohol intake frequency: 3 or more drinks per day Alcohol type: hard liquor Substance Use Type: Marijuana Advance Directives: No Advance Directives Information Provided: No Physical Exam ED Vital Signs: Vital Signs - 24 hr 02/17/23 22:44 Temperature 97.2 F Pulse Rate 116 H Respiratory Rate 20 Blood Pressure 144/93 H Pulse Oximetry 97 Oxygen Delivery Method Room Air BMI result Body Mass Index 24.4 Vital signs revealed an elevated pulse of 116 and elevated blood pressure of 144/93 otherwise unremarkable Exam: General: Awake, alert in no distress, patient is not tremulous, I do smell alcohol on his breath Head: Normocephalic, atraumatic EENT: PERRL, Lids normal, sclera normal, conjunctiva normal, nose normal , ears normal, throat without erythema or exudates Neck: Supple, no adenopathy, trachea midline and nontender Lung: breath sounds symmetric, no wheezing, rales or rhonchi Chest: symmetric movement, nontender Heart: regular rate and rhythm, normal S1, S2 no murmurs or rubs Abdomen: soft, non-tender, nondistended, normal bowel sounds Back: no vertebral tenderness, no CVAT Extremities: no deformities, moves all extremities symmetrically Skin: no rashes, no lesion, normal color and warmth Neuro: Awake, alert, oriented, normal speech, cranial nerves intact, moves all extremities symmetrically Psych: Pleasant, cooperative Medical Decision Making Medical Decision Making [facility] Narrative: 32-year-old male with a history of alcohol use disorder who presents emergency department for evaluation of alcohol withdrawal. Patient states his last drink was 12 hours prior. He states that he drink [place] whiskey, 10 nips today. Patient states he feels like he is withdrawing, he is tremulous, he has nausea with no vomiting. Patient states that he does have a detox program that he get into tomorrow and he would like to get some medicine this evening that does not withdraw prior to going to detox. Patient's physical examination did reveal an elevated heart rate as well as an elevated blood pressure, did not have any significant tremors, he did have a strong odor of alcohol on his breath he does not appear to be withdrawing from alcohol at this time. CBC, CMP, urinalysis, urine tox screen, alcohol level 0135: Given the patient's elevated alcohol level of 290 and is reported last drink being 12 hours prior, I do not think that he is in acute alcohol with drawl at this point I did discuss this with him. Patient was given printed and verbal instructions, he is advised to contact detox programs this morning to see if he get in to the detox program to help with his alcohol use disorder. Differential Diagnosis Differential diagnosis includes was not limited to alcohol intoxication, alcohol withdrawal, electrolyte abnormalities, anemia, alcoholic liver disease Admission/Observation Consideration of admission/observation: Escalation of care including admission/observation considered Lab Data [facility] Lab Attestation statement: I reviewed the patient's lab results. My interpretation patient's laboratory evaluation as follows: CBC and CMP were normal. Alcohol level was elevated 290. Urinalysis and urine tox screen were negative. 02/17/23 23:34 02/17/23 23:34 Labs: Lab Results 02/17/23 Range/Units 23:34 WBC 9.5 (4.8-10.8) X10*3/uL RBC 5.65 (4.60-5.80) X10*6/uL Hgb 17.0 (14.0-18.0) g/dl Hct 48.4 (42.0-52.0) % MCV 85.7 (80.0-98.0) fL MCH 30.1 (27.0-33.0) pg MCHC 35.1 (31.0-36.0) g/dl RDW 12.3 (11.0-16.0) % Plt Count 241 D (160-400) X10*3/uL MPV 9.8 (9.4-12.4) fL Immature Gran % (Auto) 0.3 (0.0-0.4) % Neut % (Auto) 66.7 (45-73) % Lymph % (Auto) 22.7 (20-40) % [place] % (Auto) 6.5 (2-11) % Eos % (Auto) 3.3 (0-4) % Baso % (Auto) 0.5 (0-2) % Lymph # (Auto) 2.2 (1.2-4.9) X10*3/uL [place] # (Auto) 0.6 (0.1-1.2) X10*3/uL Eos # (Auto) 0.3 (0.0-0.4) X10*3/uL Baso # (Auto) 0.1 (0.0-0.2) X10*3/uL Abs Immat Gran (auto) 0.03 (0.00-0.03) X10*3/uL Absolute Neuts (auto) 6.3 (2.0-8.3) x10*3/uL Absolute Nucleated RBC 0.000 (0.0-0.012) X10*3/uL Nucleated RBC % (auto) 0.0 (0.0-0.2) /100WBC Sodium 140 (135-145) mmol/L Potassium 3.6 (3.3-5.1) mmol/L Chloride 104 (96-108) mmol/L Carbon Dioxide 22 (22-29) mmol/L Anion Gap 18 (12-20) BUN 11 (9-16) mg/dL Creatinine 0.85 (0.5-1.4) mg/dL Estim Creat Clear Calc 136.9 Estimated GFR > 60 Random Glucose 109 (60-115) mg/dL Calcium 9.7 (8.4-10.2) mg/dL Magnesium 2.4 (1.6-2.6) mg/dL Total Bilirubin 0.5 (0.0-1.0) mg/dL AST 20 (5-37) U/L ALT 17 (0-40) U/L Alkaline Phosphatase 83 (39-117) U/L Total Protein 8.1 H (6.5-8.0) g/dL Albumin 5.0 (3.5-5.0) g/dL Urine Color Yellow Urine Appearance Clear Urine pH 6.0 (5.0-9.0) Ur Specific [place] <= 1.005 (1.005-1.025) Urine Protein Negative (Neg-Trace) mg/dL Urine Glucose (UA) Negative (Negative) mg/dL Urine Ketones Negative (Negative) mg/dL Urine Blood Trace H (Negative) Urine Nitrite Negative (Negative) Ur Leukocyte Esterase Negative (Negative) Urine RBC 0-2 (0-2) /HPF Urine WBC 0-5 (0-5) /HPF Ur Squamous Epith Cells 0-2 (0-2) /HPF Urine Bacteria None Seen (None Seen) Hyaline Casts 0-2 (0-2) /LPF Urine Opiates Screen Not Detected (Not Detect) Urine Fentanyl Screen Not Detected (Not Detect) Ur Barbiturates Screen Not Detected (Not Detect) Ur Phencyclidine Scrn Not Detected (Not Detect) Ur Amphetamines Screen Not Detected (Not Detect) U Benzodiazepines Scrn Not Detected (Not Detect) Urine Cocaine Screen Not Detected (Not Detect) U Marijuana (THC) Screen Not Detected (Not Detect) Ethyl Alcohol 290 mg/dL Discharge Plan Discharge Clinical Impression: Alcoholic intoxication Qualifiers: Complication of substance-induced condition: uncomplicated Qualified Code(s): F10.920 - Alcohol use, unspecified with intoxication, uncomplicated Patient Disposition: Home, Self-Care Instructions: Abuse of Alcohol (ED) Additional Instructions: Your alcohol level was 290. The legal limit for alcohol intoxication is 80 and your level is 3-4 times above the intoxication level. I am sending you home with a list of detox facilities. Call these numbers in the morning to try to get into a detox program to help with your alcohol use disorder. The rest of your blood work was unremarkable. Follow-up with your doctor in 2 days. Please return to the emergency department if your symptoms get worse or if you develop any symptoms that are concerning to you. Prescriptions: No Action lorazepam [Ativan] 1 mg tablet 1 mg PO Q4-6H PRN (Reason: alcohol withdrawal) Qty: 20 0RF thiamine HCl (vitamin B1) 100 mg tablet 100 mg PO DAILY Qty: 30 0RF
== END 2023-02-18 02:32 | disposition home or self-care (01) ==
PROVIDERS: Emergency Provider Emergency Medicine Emergency Medical Services
DX: F10.239 Alcohol dependence with withdrawal, unspecified (principal); Y90.8 Blood alcohol level of 240 mg/100 ml or more; Z79.899 Other long term (current) drug therapy
CPT/HCPCS: 36415; 80053; 80307; 81001; 83735; 85025; 99282; 99283

== ENCOUNTER 2023-02-20 18:41 | Emergency (ER) | payer MEDICAID, SELFPAY ==
[2023-02-20 19:22] VITALS: BP 152/95; PULSE 108; RESP 18; TEMP 37.2; O2SAT 100; BMI 24.4
--- NOTE | 2023-02-20 19:22 | ED_ITS ---
HPI - General Adult General Chief complaint: ETOH/Substance Use Stated complaint: alcohol withdraw Time Seen by Provider: 02/20/23 21:03 Source: patient Mode of arrival: ambulatory Limitations: no limitations History of Present Illness HPI narrative: 32-year-old male who presents emergency department for evaluation of alcohol withdrawal, chest pain and headache. Patient states that he drinks 10 nips of [place] whiskey daily. He states his last drink was last night and he wants to get help with his alcohol use disorder and with withdrawal. Patient was seen here several days prior by me and he states that he has been calling outpatient detox programs but has not been able to get any assistance. He states that he is feeling very anxious since he stop drinking, states that he has occasional headache occasional chest pain. He denied fever, chills, nausea, vomiting, lightheadedness, dizziness, dark tarry stools for blood per rectum. The patient states he does get tremulous when he stops drinking but has never had alcohol withdrawal seizures and he does not believe he has had delirium tremens. Related Data Previous Rx's Medication Instructions Recorded lorazepam 1 mg tablet (Ativan) 1 mg PO Q4-6H PRN alcohol 11/21/22 withdrawal #20 tabs thiamine HCl (vitamin B1) 100 mg 100 mg PO DAILY #30 tabs 11/21/22 tablet Allergies Allergy/AdvReac Type Severity Reaction Status Date / Time No Known Allergies Allergy Verified 02/17/23 22:44 Review of Systems 2 Review of Systems: Yes all other systems are reviewed and are negative [facility] Past Medical History [facility] Narrative: Past medical history: None. surgical history: None. Social history: He does smoke cigarettes, he does drink alcohol daily 10 shots of whiskey. He smokes marijuana 2 to 3 times a week. Social History Social History Alcohol intake: current Alcohol intake frequency: 3 or more drinks per day Alcohol type: hard liquor Substance Use Type: Marijuana Physical Exam ED Vital Signs: Vital Signs - 24 hr 02/20/23 19:22 Temperature 99.0 F Pulse Rate 108 H Respiratory Rate 18 Blood Pressure 152/95 H Pulse Oximetry 100 Oxygen Delivery Method Room Air BMI result Body Mass Index 24.4 Vital signs revealed an elevated pulse of 108 and elevated blood pressure of 152/95 exam: General: Awake, alert in no distress Head: Normocephalic, atraumatic EENT: PERRL, Lids normal, sclera normal, conjunctiva normal, nose normal , ears normal, throat without erythema or exudates Neck: Supple, no adenopathy, trachea midline and nontender Lung: breath sounds symmetric, no wheezing, rales or rhonchi Chest: symmetric movement, nontender Heart: regular rate and rhythm, normal S1, S2 no murmurs or rubs Abdomen: soft, non-tender, nondistended, normal bowel sounds Back: no vertebral tenderness, no CVAT Extremities: no deformities, moves all extremities symmetrically Skin: no rashes, no lesion, normal color and warmth Neuro: Awake, alert, oriented, normal speech, cranial nerves intact, moves all extremities symmetrically Psych: Pleasant, cooperative Course Course Course Narrative: This is a rapid medical exam: Additional HPI, ROS, PE not included below will be deferred to primary provider. Patient is a 32 year old male presenting to the emergency department for alcohol withdrawl. Complains of headache, chest pain, shakiness. Vomited once this morning, denies nausea now. Last drink was last night around 11pm. Denies prior detox seizures but states felt pretty close today. Denies suicidal ideation, homicidal ideation, auditory or visual hallucinations. Plan: EKG, labs, charge weigher notified and patient brought directly inside ED to a room Medical Decision Making Medical Decision Making MDM Narrative: 32-year-old male with a history of alcohol use disorder who stop drinking last night and feels like he is withdrawing from alcohol. Patient's vital signs did reveal an elevated pulse and elevated blood pressure but he does not appear to be tremulous or delirious at this time. The patient is most likely an mild alcohol withdrawal at this point I did discuss this with him. Patient was given Ativan 2 mg orally. The following evaluation was ordered: CBC, CMP, troponin, urine drug screen, ethanol level 2128 : Patient's laboratory evaluation was unremarkable, patient's ethanol level was below detectable limits. Twelve EKG was unremarkable. Patient was treated with Ativan 2 mg orally with some improvement of symptoms, I offered to keep the patient here in the emergency department so he can be evaluated by recovery team tomorrow but he does not list any emergency department wants to go home. I did tell him that he wants to seek further treatment he can come back in the morning and we can have the recovery team evaluate him. Otherwise he is advised to continue to try to contact the outpatient detox clinics to see if he get into an outpatient treatment program. Differential Diagnosis Differential diagnosis includes was not limited to alcohol withdrawal syndrome, alcohol intoxication, electrolyte abnormalities, anemia, drug use disorder Admission/Observation Consideration of admission/observation: Escalation of care including admission/observation considered Lab Data MDM Lab Attestation statement: I reviewed the patient's lab results. my interpretation patient's laboratory evaluation as follows: CBC was normal. CMP was normal. Ethanol level was below detectable limits. Patient's high sensitive troponin I was detectable at 4.2 but not elevated. 02/20/23 20:39 02/20/23 20:39 Labs: Lab Results 02/20/23 Range/Units 20:39 WBC 5.4 (4.8-10.8) X10*3/uL RBC 4.93 (4.60-5.80) X10*6/uL Hgb 14.7 (14.0-18.0) g/dl Hct 41.7 L (42.0-52.0) % MCV 84.6 (80.0-98.0) fL MCH 29.8 (27.0-33.0) pg MCHC 35.3 (31.0-36.0) g/dl RDW 12.6 (11.0-16.0) % Plt Count 211 (160-400) X10*3/uL MPV 9.6 (9.4-12.4) fL Immature Gran % (Auto) 0.4 (0.0-0.4) % Neut % (Auto) 57.1 (45-73) % Lymph % (Auto) 26.8 (20-40) % [place] % (Auto) 12.4 H (2-11) % Eos % (Auto) 2.6 (0-4) % Baso % (Auto) 0.7 (0-2) % Lymph # (Auto) 1.5 (1.2-4.9) X10*3/uL [place] # (Auto) 0.7 (0.1-1.2) X10*3/uL Eos # (Auto) 0.1 (0.0-0.4) X10*3/uL Baso # (Auto) 0.0 (0.0-0.2) X10*3/uL Abs Immat Gran (auto) 0.02 (0.00-0.03) X10*3/uL Absolute Neuts (auto) 3.1 (2.0-8.3) x10*3/uL Absolute Nucleated RBC 0.000 (0.0-0.012) X10*3/uL Nucleated RBC % (auto) 0.0 (0.0-0.2) /100WBC Sodium 138 (135-145) mmol/L Potassium 3.6 (3.3-5.1) mmol/L Chloride 102 (96-108) mmol/L Carbon Dioxide 25 (22-29) mmol/L Anion Gap 15 (12-20) BUN 13 (9-16) mg/dL Creatinine 0.84 (0.5-1.4) mg/dL Estim Creat Clear Calc 138.5 Estimated GFR > 60 Random Glucose 103 (60-115) mg/dL Calcium 9.7 (8.4-10.2) mg/dL Total Bilirubin 1.3 H (0.0-1.0) mg/dL AST 46 H (5-37) U/L ALT 25 (0-40) U/L Alkaline Phosphatase 84 (39-117) U/L Troponin I High Sens 4.2 (<3.5-35.0) ng/L Total Protein 7.1 (6.5-8.0) g/dL Albumin 4.5 (3.5-5.0) g/dL Urine Opiates Screen Not Detected (Not Detect) Urine Fentanyl Screen Not Detected (Not Detect) Ur Barbiturates Screen POSITIVE H (Not Detect) Ur Phencyclidine Scrn Not Detected (Not Detect) Ur Amphetamines Screen Not Detected (Not Detect) U Benzodiazepines Scrn Not Detected (Not Detect) Urine Cocaine Screen Not Detected (Not Detect) U Marijuana (THC) Screen Not Detected (Not Detect) Ethyl Alcohol < 10 mg/dL Independent Interpretation I performed an independent interpretation of an: EKG Interpretation: My independent interpretation patient's 12 EKG done at 20:36 hours is as follows: Normal sinus rhythm rate 82, normal [place] interval, QRS duration QTC interval, no ST segment elevation, no ST segment depression, no PACs, no PVCs- this EKG is unchanged from 11/29/2022, there is no significant abnormalities noted. Discharge Plan Discharge Clinical Impression: Alcohol use disorder Alcohol withdrawal syndrome Qualifiers: Complication of substance-induced condition: uncomplicated Qualified Code(s): F 10.930 - Alcohol use, unspecified with withdrawal, uncomplicated Patient Disposition: Home, Self-Care Instructions: Alcohol Withdrawal (ED) Additional Instructions: Your blood work today was normal. Your alcohol level was below detectable limits. Your treated with Ativan 2 mg orally. Continue to call the detox program numbers to see if you get into an outpatient detox. We do have a recovery team that is here in the morning in the afternoons that can also help you get into detox program. Follow-up with your doctor in 2 days. Please return to the emergency department if your symptoms get worse or if you develop any symptoms that are concerning to you. Prescriptions: No Action lorazepam [Ativan] 1 mg tablet 1 mg PO Q4-6H PRN (Reason: alcohol withdrawal) Qty: 20 0RF thiamine HCl (vitamin B1) 100 mg tablet 100 mg PO DAILY Qty: 30 0RF
--- NOTE | 2023-02-20 19:24 | ECG_ITS ---
Test Reason : ALCOHOL WITHDRAWAL Blood Pressure : / mmHG Vent. Rate : 082 BPM Atrial Rate : 082 BPM P-R Int : 146 ms QRS Dur : 078 ms QT Int : 344 ms P-R-T Axes : 064 022 037 degrees QTc Int : 401 ms Normal sinus rhythm Normal ECG When compared with ECG of 29-NOV-2022 04:09, No significant change was found Referred By: Rehana Leslie Electronically Signed By:EDSON UP
[2023-02-20 20:44] LABS: MANUAL DIFF FLAG NO
[2023-02-20 20:48] LABS: Basophils Percent Auto 0.7 % (0-2); Eosinophils Absolute Auto 0.1 X10*3/uL (0.0-0.4); Eosinophils Percent Auto 2.6 % (0-4); Hematocrit 41.7 % (42.0-52.0); Hemoglobin 14.7 g/dl (14.0-18.0); Imm Gran Abs Auto 0.02 X10*3/uL (0.00-0.03); Imm Gran Pct Auto 0.4 % (0.0-0.4); Lymphocytes Absolute Auto 1.5 X10*3/uL (1.2-4.9); Lymphocytes Percent Auto 26.8 % (20-40); Mean Corpuscular HGB Conc 35.3 g/dl (31.0-36.0); Mean Corpuscular Hemoglobin 29.8 pg (27.0-33.0); Mean Corpuscular Volume 84.6 fL (80.0-98.0); Mean Platelet Volume 9.6 fL (9.4-12.4); Monocytes Absolute Auto 0.7 X10*3/uL (0.1-1.2); Monocytes Percent Auto 12.4 % (2-11); Neutrophils Absolute Auto 3.1 x10*3/uL (2.0-8.3); Neutrophils Percent Auto 57.1 % (45-73); Platelet Count 211 X10*3/uL (160-400); Red Blood Count 4.93 X10*6/uL (4.60-5.80); Red Cell Distribution Width 12.6 % (11.0-16.0); White Blood Count 5.4 X10*3/uL (4.8-10.8)
[2023-02-20 20:59] LABS: Amphetamine Screen Urine Not Detected (Not Detect); Barbiturates, Urine POSITIVE (Not Detect); Benzodiazepines Screen Urine Not Detected (Not Detect); Cannabinoid Screen Urine Not Detected (Not Detect); Cocaine Screen Urine Not Detected (Not Detect); Fentanyl, urine Not Detected (Not Detect); Opiate Screen Urine Not Detected (Not Detect); Phencyclidine Screen Urine Not Detected (Not Detect)
[2023-02-20 21:03] LABS: Alanine Aminotransferase 25 U/L (0-40); Albumin Level 4.5 g/dL (3.5-5.0); Alkaline Phosphatase 84 U/L (39-117); Anion Gap 15 (12-20); Aspartate Amino Transferase 46 U/L (5-37); Bilirubin Total 1.3 mg/dL (0.0-1.0); Blood Urea Nitrogen 13 mg/dL (9-16); Calcium 9.7 mg/dL (8.4-10.2); Carbon Dioxide 25 mmol/L (22-29); Chloride 102 mmol/L (96-108); Creatinine Clr Calc Pharmacy 138.5; Estimated Glomerular Filt Rate > 60; Ethanol < 10 mg/dL; Glucose Random 103 mg/dL (60-115); Potassium 3.6 mmol/L (3.3-5.1); Sodium 138 mmol/L (135-145); Total Protein 7.1 g/dL (6.5-8.0)
[2023-02-20 21:04] LABS: Troponin-I High Sensitivity 4.2 ng/L (<3.5-35.0)
[2023-02-20] MEDS: LORazepam 1 MG TABLET 2 MG PO (21:33)
== END 2023-02-20 23:26 | disposition home or self-care (01) ==
PROVIDERS: Registered Nurse Emergency; Emergency Provider Emergency Medicine Emergency Medical Services
DX: F10.139 Alcohol abuse with withdrawal, unspecified (principal); Y90.0 Blood alcohol level of less than 20 mg/100 ml; R07.89 Other chest pain; R51.9 Headache, unspecified
CPT/HCPCS: 36415; 80053; 80307; 84484; 85025; 93005; 99283; 99285

== ENCOUNTER 2024-01-23 22:30 | Emergency (ER) | payer OTHER, SELFPAY ==
--- NOTE | 2024-01-23 | ECG_ITS ---
Test Reason : TACHY Blood Pressure : / mmHG Vent. Rate : 131 BPM Atrial Rate : 131 BPM P-R Int : 160 ms QRS Dur : 076 ms QT Int : 288 ms P-R-T Axes : 059 036 030 degrees QTc Int : 425 ms Sinus tachycardia Possible Left atrial enlargement Abnormal ECG When compared with ECG of 20-FEB-2023 20:36, Vent. rate has increased BY 49 BPM Referred By: Generic ED Physician Electronically Signed By:EDSON UP
[2024-01-23 22:55] VITALS: BP 155/102; PULSE 133; RESP 16; TEMP 36.8; O2SAT 96; BMI 22.7
[2024-01-23 23:23] LABS: Appearance Urine Clear; Color Urine Yellow; Glucose Urine UA Negative (Negative); Hematocrit 46.1 % (42.0-52.0); Hemoglobin 16.6 g/dl (14.0-18.0); Leukocyte Esterase Urine Negative (Negative); Mean Corpuscular Hemoglobin 29.9 pg (27.0-33.0); Mean Corpuscular Volume 83.1 fL (80.0-98.0); Mean Platelet Volume 8.9 fL (9.4-12.4); Nitrite Urine Negative (Negative); PH 7.5 (5.0-9.0); Platelet Count 240 X10*3/uL (160-400); Red Blood Count 5.55 X10*6/uL (4.60-5.80); Red Cell Distribution Width 13.3 % (11.0-16.0); UMIC TRIGGER UACC YES; Urine Blood Moderate (2+) (Negative); Urine Ketones Negative (Negative); Urine Protein 30 (1+) mg/dL (Neg-Trace); White Blood Count 5.8 X10*3/uL (4.8-10.8)
[2024-01-23 23:34] LABS: Amphetamine Screen Urine Not Detected (Not Detect); Bacteria Urine None Seen (None Seen); Barbiturates, Urine POSITIVE (Not Detect); Benzodiazepines Screen Urine Not Detected (Not Detect); Buprenorphine Scr Not Detected (Not Detect); Cannabinoid Screen Urine POSITIVE (Not Detect); Cocaine Screen Urine Not Detected (Not Detect); Fentanyl, urine Not Detected (Not Detect); Methadone Screen, Urine Not Detected (Not Detect); Opiate Screen Urine Not Detected (Not Detect); Oxycodone Screen Urine Not Detected (Not Detect); Phencyclidine Screen Urine Not Detected (Not Detect); Squamous Epithelial Cell Urine 0-2 /HPF (0-2); WBC Urine 0-5 /HPF (0-5)
[2024-01-23 23:35] LABS: Alanine Aminotransferase 32 U/L (0-40); Albumin Level 4.6 g/dL (3.5-5.0); Alkaline Phosphatase 102 U/L (39-117); Anion Gap 17 (12-20); Aspartate Amino Transferase 46 U/L (5-37); Bilirubin Total 0.6 mg/dL (0.0-1.0); Blood Urea Nitrogen 7 mg/dL (9-16); Carbon Dioxide 21 mmol/L (22-29); Chloride 106 mmol/L (96-108); Estimated Glomerular Filt Rate > 60; Ethanol 334 mg/dL; Glucose Random 111 mg/dL (60-115); Potassium 3.7 mmol/L (3.3-5.1); Sodium 140 mmol/L (135-145); Total Protein 7.7 g/dL (6.5-8.0)
--- NOTE | 2024-01-24 00:39 | PC.NURSE ---
national service officer attempting to bring pt back into a room. Pt exited the ED into an [employer] that he had ordered for himself, refusing to come back into the ED for care/treatment.
--- OUTSIDE RECORDS SUMMARY | 2024-01-26 00:06 | XMS_ITS | Continuity of Care Document ---
Author Organization [facility] Address [address] [place] [id number] Encounter SUNNI PIERRE [id number] Date(s): 12/22/23 - 12/23/[address] [address] - Encounter Diagnosis Acute alcohol intoxication(Discharge Diagnosis) - 12/22/23 Discharge Disposition: Home or Self Care Attending Physician: Sawyer Kirkpatrick MD Admitting Physician: Sawyer Kirkpatrick MD Referring Physician: Sawyer Kirkpatrick MD Allergies, Adverse Reactions, Alerts No Known Allergies Assessment and Plan Extracted from: Title:ED Provider Note Author:Sawyer Kirkpatrick MD Date:12/22/23 Assessment/Plan 1.??Acute alcohol intoxication??F10.929 Orders: Ativan, 3 mg = 6 tab, Oral, Tab, every 1 hr, PRN other (see comment), Start date 12/22/23 23:25:00 EDT, 12/22/23 23:25:00 EDT Ativan, 2 mg = 4 tab, Oral, Tab, every 1 hr, PRN other (see comment), Start date 12/22/23 23:25:00 EDT, 12/22/23 23:25:00 EDT Ativan, 1 mg = 2 tab, Oral, Tab, every 1 hr, PRN other (see comment), Start date 12/22/23 23:25:00 EDT, 12/22/23 23:25:00 EDT nicotine 21 mg/24 hr patch, extended release, 21 mg = 1 patches, Transdermal, Film-ER, Daily, Start date 12/23/23 1:00:00 EDT, 12/23/23 0:21:00 EDT patch removal, 1 EA, Transdermal, Film, Daily, Start date 12/23/23 8:30:00 EDT, Routine, 12/24/23 0:20:00 EDT Clinical [place] Withdrawal Assessment, 12/22/23 23:25:00 EDT, every 4 hr Medical Incapacity Hold, 12/22/23 22:49:00 EDT, Lacks Medical Decision Making Capacity, Constant Indicator, 12/22/23 22:49:00 EDT Notify Provider, 12/22/23 23:25:00 EDT, Constant order, Notify provider if CIWA- Ar >= 17 Vital Signs, 12/22/23 23:25:00 EDT, every 4 hr Patient Discharge Condition stable Discharge Disposition anticipated d/c in the AM Patient Education Alcohol Intoxication Follow Up With When Contact Information Return to Emergency Department Additional Instructions: Please reevaluate for any other worsening problems concerns or issues if they were to occur. Problem List No Known Problems Results Laboratory List Name Date Alcohol Level 12/22/23 Most recent to oldest [Reference Range]: 1 Ethanol Level [<=10 mg/dL] 314 mg/dL *HI* (12/22/23 10:47 PM) Vital Signs Most recent to oldest [Reference Range]: 1 2 3 Temperature Oral [35.8-37.3 Deg C] 36.6 Deg C (12/23/23 5:03 AM) 36.8 Deg C (12/22/23 10:08 PM) Peripheral Pulse Rate [60-100 bpm] 94 bpm (12/23/23 5:03 AM) 95 bpm (12/23/23 12:17 AM) 120 bpm *HI* (12/22/23 10:08 PM) Respiratory Rate [12-24 br/min] 18 br/min (12/22/23 10:08 PM) Blood Pressure [90-140/60-90 mmHg] 150/87mmHg *HI* (12/23/23 5:03 AM) 143/89mmHg *HI* (12/23/23 12:17 AM) 118/102mmHg (12/22/23 10:08 PM) Mean Arterial Pressure, Cuff [70-110 mmHg] 108 mmHg (12/23/23 5:03 AM) 107 mmHg (12/23/23 12:17 AM) SpO2 [94 %] 96 % (12/23/23 5:03 AM) 99 % (12/23/23 12:17 AM) 95 % (12/22/23 10:08 PM) Social History Social History Type Response Tobacco Tobacco Use: Tobacco pouch. . Sex Male Hospital Discharge Instructions Patient Education 12/22/2023 23:33:40 Alcohol Intoxication Alcohol Intoxication Alcohol intoxication occurs when a person no longer thinks clearly or functions well after drinkingalcohol. This is also referred to as becoming impaired. Intoxication can occur with just one drink.The legal definition of alcohol intoxication depends on the amount of alcohol in the blood (blood alcohol concentration, CHANDU). CHANDU of 80???100 mg/dL or higher is commonly considered legally intoxicated. The level of impairment depends on: ??? The amount of alcohol the person had. ??? The person's age, gender, and weight. ??? How often the person drinks. ??? Whether the person has other medical conditions, such as diabetes, seizures, or a heart condition. Alcohol intoxication can range from mild to severe. The condition can be dangerous, especially if the person: ??? Also took certain drugs or prescription medicines. ??? Drinks a large amount of alcohol in a short period of time (binge drinks). ??? For women, binge drinking is having four or more drinks at one time. ??? For men, binge drinking is having five or more drinks at one time. If you or anyone around you appears intoxicated, speak up and act. What are the causes? This condition is caused by drinking alcohol. What increases the risk? The following factors may make you more likely to develop this condition: ??? Peer pressure in young adults. ??? Difficulty managing stress. ??? History of drug or alcohol abuse. ??? Family history of drug or alcohol abuse. ??? Combining alcohol with drugs. ??? Low body weight. ??? Binge drinking. What are the signs or symptoms? Symptoms of alcohol intoxication can vary from person to person. Symptoms can be mild, moderate, orsevere. Symptoms of mild alcohol intoxication may include: ??? Feeling relaxed or sleepy. ??? Having mild difficulty with coordination, speech, memory, or attention. Symptoms of moderate alcohol intoxication may include: ??? Strong anger or extreme sadness. ??? Moderate difficulty with coordination, speech, memory, or attention. Symptoms of severe alcohol intoxication may include: ??? Severe difficulty with coordination, speech, memory, or attention. ??? Passing out. ??? Vomiting. ??? Confusion. ??? Slow breathing. ??? Coma. Intoxication can change quickly from mild to severe. It can cause coma or , especially in people who do not drink alcohol often. How is this diagnosed? Your health care provider will ask you how much alcohol you drank and what kind you had. Intoxication may also be diagnosed based on: ??? Your symptoms and medical history. ??? A physical exam. ??? A blood test that measures CHANDU. ??? A smell of alcohol on your breath. How is this treated? Treatment for alcohol intoxication may include: ??? Being monitored in an emergency department, hospital, or treatment center until your CHANDU comes down and it is safe for you to go home. ??? IV fluids to prevent or treat loss of fluid in the body (dehydration). ??? Medicine to treat nausea or vomiting or to get rid of alcohol in the body. ??? Counseling about the dangers of using alcohol. ??? Treatment for substance use disorder. ??? Oxygen therapy or a breathing machine (ventilator). Drinking alcohol for a long time can have long-term effects on your brain, heart, and digestive system. These effects can be serious and may also require treatment. Follow these instructions at home: Eating and drinking ??? Do not drink alcohol if: ??? Your health care provider tells you not to drink. ??? You are , may be , or are planning to become . ??? You are under the legal drinking age, or under 21 years old in the [place] ??? You are taking medicines that should not be taken with alcohol. ??? You have a medical condition, and alcohol makes it worse. ??? You need to drive or perform activities that require you to be alert. ??? You have substance use disorder. ??? Ask your health care provider if alcohol is safe for you. If your health care provider allows you to drink alcohol, limit how much you have to: ??? 0???1 drink a day for women who are not . ??? 0???2 drinks a day for men. ??? Know how much alcohol is in your drink. In the [place] one drink equals one 12 oz bottle of beer (355 mL), one 5 oz glass of wine (148 mL), or one 1?? oz glass of hard liquor (44 mL). ??? Avoid drinking alcohol on an empty stomach. ??? Alcohol increases urination. It is important to stay hydrated and avoid caffeine. ??? Avoid drinking more than one drink per hour. ??? When having multiple drinks, drink water or a non-alcoholic beverage between alcoholic drinks. General instructions ??? Take eblp-sej-nshvxip and prescription medicines only as told by your health care provider. ??? Do not drive after drinking any amount of alcohol. Plan for a designated oil transport driver or another way to go home. ??? Have someone responsible stay with you while you are intoxicated. You should notbe left alone. Contact a health care provider if: ??? You do not feel better after a few days. ??? You have problems at work, at school, or at home due to drinking. Get help right away if: ??? You have any of the following: ??? Trouble staying awake. ??? Moderate to severe trouble with coordination, speech, memory, or attention. ??? You are told you may have had a seizure. ??? Vomiting bright red blood or material that looks like coffee grounds. ??? Bloody stool (feces). The blood may make your stool bright red, black, or tarry. These symptoms may be an emergency. Get help right away. Call 911. ??? Do not wait to see if the symptoms will go away. ??? Do not drive yourself to the hospital. Also, get help right away if: ??? You have thoughts about hurting yourself or others. Take one of these steps if you feel like you may hurt yourself or others, or have thoughts about taking your own life: ??? Call 911. ??? Call the National Suicide Prevention Lifeline at or 068. This is open 24 hours aday. ??? Text the Crisis Text Line at 199965. Summary ??? Alcohol intoxication occurs when a person no longer thinks clearly or functions well after drinking alcohol. ??? Ask your health care provider if alcohol is safe for you. If your health care provider allows you to drink alcohol, limit how much you have. ??? Contact your health care provider if drinking has caused you problems at work, school, or home. ??? Get help right away if you have thoughts about hurting yourself or others. This information is not intended to replace advice given to you by your health care provider. Make sure you discuss any questions you have with your health care provider. Document Revised: 08/06/2022 Document Reviewed: 08/06/2022 [employer] Patient Education ?? 2022 [employer]. Follow Up Care 12/22/2023 21:56:55 With:Return to Emergency Department Address: When: Unknown Comments:Please reevaluate for any other worsening problems concerns or issues if they were to occur. Emergency department Discharge summary * Sawyer Kirkpatrick MD: PERFORM, SIGN, VERIFY Event Display: ED Clinical Summary Authored Date: [id number] [address] Clinical Summary PERSON INFORMATION Name: JUAN LUIS HOBBS Age: 33 Years : 1990 Sex: Male Language: Malian PCP: Marital Status: Single Phone: Med Service: Emergency Medicine Arrival: 12/22/2023 21:56:39 Visit Reason: Acute alcohol intoxication; ETOH Acuity: 3 - Urgent LOS: 000 07:01 Address: [address] [place] [address] [facility] [id number] Diagnosis: 1:Acute alcohol intoxication Medications Administered: Medication Dose Route nicotine (nicotine 21 mg/24 hr patch, extended release) 21 mg Transdermal melatonin (Melatonin) 6 mg Oral LORazepam (Ativan) 1 mg Oral Radiology Orders: Laboratory Orders: Alcohol Level Blood, Stat, 12/22/23 22:31:00 EDT, Once, Lab Collect Extra Tube - Blue Blood, Stat, Collected, 12/22/23 22:47:00 EDT, by [id number], Once, Lab Collect, 2.7 mL Blue NaCit 2.7mL/*[id number]*/ Extra Tube - Gold Blood, Stat, Collected, 12/22/23 22:47:00 EDT, by [id number], Once, Lab Collect, 5mL SST 5.0mL/*[id number]*/ Extra Tube - Lav Blood, Stat, Collected, 12/22/23 22:47:00 EDT, by [id number], Once, Lab Collect, 4 mL Lav EDTA 4.0mL/*[id number]*/ Lab and Rad: Laboratory or Other Results This Visit??(last charted value for your??12/22/2023??visit) ?Toxicology ?12/22/2023?10:47 PM ?Ethanol Level:??314??mg/dL Medications: PROVIDER INFORMATION Provider Role Assigned Unassigned Ousmane Del Cid TAR ROOFER Nurse 12/22/2023 22:02:52 Helena Nunez KERRICK KLEANER OPERATOR ED Misc 12/22/2023 22:14:02 12/23/2023 03:56:53 [facility] ED Reg 12/22/2023 22:17:12 12/22/2023 22:26:00 Sawyer Kirkpatrick MD ED Provider 12/22/2023 22:33:23 [facility] ED Reg 12/22/2023 22:40:57 Nikki Whitfield KERRICK KLEANER OPERATOR ED [facility] 12/23/2023 03:56:55 Attending Physician: Sawyer Kirkpatrick MD Admit Doc Sawyer Kirkpatrick MD Consulting Doc VITALS INFORMATION Vital Sign Triage Latest Temp Oral Temp Temporal Temp Intravascular Temp Axillary Temp Rectal 02 Sat 95 % 99 % Respiratory Rate Peripheral Pulse Rate Apical Heart Rate Blood Pressure / 102 mmHg / 89 mmHg Allergies ?No Known Allergies Immunizations ?No Immunizations Documented This Visit DISCHARGE INFORMATION Discharge Disposition: Discharge Location: Discharge Date and Time: ED Checkout Date and Time: DEPART REASON INCOMPLETE INFORMATION Problems ?Active ?No Chronic Problems Smoking Status PATIENT EDUCATION INFORMATION Instructions: Alcohol Intoxication Follow up: With: Address: When: Return to Emergency Department Comments: Please reevaluate for any other worsening problems concerns or issues if they were to occur. PATIENT INSTRUCTIONS Physician Emergency department Note * Sawyer Kirkpatrick MD: PERFORM Event Display: ED Note Provider Authored Date: [id number] JUAN LUIS HOBBS :1990 Age:33 years Sex:Male Visit Date:12/22/2023 Basic Information Time Seen: Sawyer Kirkpatrick MD ??12/22/2023 22:33 Chief Complaint Pt BIBA with complaints of ETOH at [facility]. Pt admits to drinking a couple of nips. Pt has nomedical complaints at this time. History Of Present Illness: This is a 33-year-old male patient who was at a local concert.?? Patient really did not feel like he needed to be brought to the hospital. ??He does admit to drinking alcohol tonight??and does admit that he has??some degree of intoxication. ??The patient denies any??additional drugs.?? The patient reports no trauma or injury.?? The patient was apparently seen to be stumbling around??at the??concert venue??while he was dancing and??he was brought here for medical attention. ??Patient states he never fell or hit his head.?? He denies any nausea or vomiting.?? He is hopeful to be able to be discharged.?? Reports that he is otherwise generally healthy with no regular medical problems. Review of Systems: All other systems are reviewed and otherwise negative Physical Exam Vitals & Measurements T:??36.8?C ??(Oral)?? HR:??95??(Peripheral)?? RR:??18?? BP:??143/89?? SpO2:??99%?? O2 Therapy:??Room air?? General: Well-appearing, nontoxic, no acute distress. HEENT: Normocephalic/atraumatic, pharynx normal, airway patent. Neck: Supple Cardiovascular: Regular rate and rhythm, no murmurs, rubs, or gallops. Pulmonary: Lungs clear. Abdomen: Soft, nontender/nondistended, no masses. Back: Nontender. Extremities: Warm and well perfused, no cyanosis/clubbing/edema. Skin: No rashes. Neurological Examination. Mental Status: ??Alert, oriented x3. ??Mental status is consistent with a mild degree of alcohol intoxication.?? Does slur her words very slightly. Cranial nerves: 2-12 are intact without deficit.?? Pupils equal round reactive to light. ??Extraocular movements are intact. Motor strength: ??5 over 5 in all 4 extremities. Sensation: Intact in all 4 extremities. Gait:??Appears to be for the most part generally??steady.?? Does not appear to be considerable fallrisk. Medical Decision Making: This is a 33-year-old male patient presents for evaluation of??alcohol tox patient. ??The patient??was at a local concert. ??The patient??was by himself. ??Was felt to be stumbling around and not safe??from a bowel standpoint at the concert and he did been to alcohol.?? The patient does appear to be intoxicated clinically.?? The patient??was initially??hoping to be able to be discharged and was hoping that a family member could give him a ride home but nobody was willing to pick him up.?? Patient was consistently constantly asked to go outside for cigarette and I advised him is against hospital policy.?? He was??given a nicotine patch as a replacement. ?? Alcohol level did result??just greater than 300 and advised the patient that he would need to be??closely observed here until morning time around 6 AM at which point time I would be??able to put in his discharge.?? The patient will be monitored closely on a withdrawal protocol. ??He requested some medication to help sleep and I do believe the melatonin would be safe??in the setting of alcohol intoxication to administer. ?? Again I will observe the patient closely until morning at which point, plan to discharge the patient.?? I did not feel he required any other additional workup.?? Vital signs to be closely followedas well. Assessment/Plan 1.??Acute alcohol intoxication??F10.926 Orders: Ativan, 3 mg = 6 tab, Oral, Tab, every 1 hr, PRN other (see comment), Start date 12/22/23 23:25:00 EDT, 12/22/23 23:25:00 EDT Ativan, 2 mg = 4 tab, Oral, Tab, every 1 hr, PRN other (see comment), Start date 12/22/23 23:25:00 EDT, 12/22/23 23:25:00 EDT Ativan, 1 mg = 2 tab, Oral, Tab, every 1 hr, PRN other (see comment), Start date 12/22/23 23:25:00 EDT, 12/22/23 23:25:00 EDT nicotine 21 mg/24 hr patch, extended release, 21 mg = 1 patches, Transdermal, Film-ER, Daily, Startdate 12/23/23 1:00:00 EDT, 12/23/23 0:21:00 EDT patch removal, 1 EA, Transdermal, Film, Daily, Start date 12/23/23 8:30:00 EDT, Routine, 12/24/23 0:20:00 EDT Clinical [place] Withdrawal Assessment, 12/22/23 23:25:00 EDT, every 4 hr Medical Incapacity Hold, 12/22/23 22:49:00 EDT, Lacks Medical Decision Making Capacity, Constant Indicator, 12/22/23 22:49:00 EDT Notify Provider, 12/22/23 23:25:00 EDT, Constant order, Notify provider if CIWA- Ar >= 17 Vital Signs, 12/22/23 23:25:00 EDT, every 4 hr Patient Discharge Condition stable Discharge Disposition anticipated d/c in the AM Patient Education Alcohol Intoxication Follow Up With When Contact Information Return to Emergency Department Additional Instructions: Please reevaluate for any other worsening problems concerns or issues if they were to occur. Problem List/Past Medical History Ongoing No chronic problems Historical No qualifying data Medication Administration Given Melatonin, 6 mg, Oral. For: Acute alcohol intoxication Allergies No Known Allergies Social History Electronic Cigarette/Vaping Electronic Cigarette Use: Never. Tobacco Tobacco Use: Tobacco pouch. . Diagnostic Results No qualifying data available. Lab Results Serum Toxicology?? LATEST RESULTS?? Ethanol Level?? 12/22/23 22:47?? 314 ??High? Electronically Signed on 12/23/2023 00:34 EDT Sawyer Kirkpatrick MD Emergency department Discharge instructions * Ousmane Del Cid RN: PERFORM Event Display: ED Discharge Information Authored Date: [id number] JUAN LUIS HOBBS :1990 Age:33 years Sex:Male Visit Date:12/22/2023 Discharge Instructions We would like to thank you for allowing us to assist you with your healthcare needs. The following includes patient education materials and information regarding your injury/illness. Diagnosis from Today's Visit Acute alcohol intoxication Discharge Vitals Temperature??(Oral) 98.2 ??F (36.8 ??C) Heart Rate??(Peripheral) 95 Respiratory Rate?? 18 Blood Pressure?? 143/89?? SpO2?? 99% Allergies No Known Allergies What to Do Next You Need to Schedule the Following Appointments Follow Up with??Return to Emergency Department Why: Please reevaluate for any other worsening problems concerns or issues if they were to occur. You were treated today on an emergency basis; it may be davis to contact your primary care provider to notify them of your visit today. You may have been referred to your regular doctor or a specialist, please follow up as instructed. If your condition worsens or you can't get in to see the doctor, contact the Emergency Department. Education Materials Alcohol Intoxication Alcohol intoxication occurs when a person no longer thinks clearly or functions well after drinkingalcohol. This is also referred to as becoming impaired. Intoxication can occur with just one drink.The legal definition of alcohol intoxication depends on the amount of alcohol in the blood (blood alcohol concentration, CHANDU). CHANDU of 80???100 mg/dL or higher is commonly considered legally intoxicated. The level of impairment depends on: ? The amount of alcohol the person had. ? The person's age, gender, and weight. ? How often the person drinks. ? Whether the person has other medical conditions, such as diabetes, seizures, or a heart condition. Alcohol intoxication can range from mild to severe. The condition can be dangerous, especially if the person: ? Also took certain drugs or prescription medicines. ? Drinks a large amount of alcohol in a short period of time (binge drinks). ? For women, binge drinking is having four or more drinks at one time. ? For men, binge drinking is having five or more drinks at one time. If you or anyone around you appears intoxicated, speak up and act. What are the causes? This condition is caused by drinking alcohol. What increases the risk? The following factors may make you more likely to develop this condition: ? Peer pressure in young adults. ? Difficulty managing stress. ? History of drug or alcohol abuse. ? Family history of drug or alcohol abuse. ? Combining alcohol with drugs. ? Low body weight. ? Binge drinking. What are the signs or symptoms? Symptoms of alcohol intoxication can vary from person to person. Symptoms can be mild, moderate, orsevere. Symptoms of mild alcohol intoxication may include: ? Feeling relaxed or sleepy. ? Having mild difficulty with coordination, speech, memory, or attention. Symptoms of moderate alcohol intoxication may include: ? Strong anger or extreme sadness. ? Moderate difficulty with coordination, speech, memory, or attention. Symptoms of severe alcohol intoxication may include: ? Severe difficulty with coordination, speech, memory, or attention. ? Passing out. ? Vomiting. ? Confusion. ? Slow breathing. ? Coma. Intoxication can change quickly from mild to severe. It can cause coma or , especially in people who do not drink alcohol often. How is this diagnosed? Your health care provider will ask you how much alcohol you drank and what kind you had. Intoxication may also be diagnosed based on: ? Your symptoms and medical history. ? A physical exam. ? A blood test that measures CHANDU. ? A smell of alcohol on your breath. How is this treated? Treatment for alcohol intoxication may include: ? Being monitored in an emergency department, hospital, or treatment center until your CHANDU comes downand it is safe for you to go home. ? IV fluids to prevent or treat loss of fluid in the body (dehydration). ? Medicine to treat nausea or vomiting or to get rid of alcohol in the body. ? Counseling about the dangers of using alcohol. ? Treatment for substance use disorder. ? Oxygen therapy or a breathing machine (ventilator). Drinking alcohol for a long time can have long-term effects on your brain, heart, and digestive system. These effects can be serious and may also require treatment. Follow these instructions at home: Eating and drinking ? Do not drink alcohol if: ? Your health care provider tells you not to drink. ? You are , may be , or are planning to become . ? You are under the legal drinking age, or under 21 years old in the [place] ? You are taking medicines that should not be taken with alcohol. ? You have a medical condition, and alcohol makes it worse. ? You need to drive or perform activities that require you to be alert. ? You have substance use disorder. ? Ask your health care provider if alcohol is safe for you. If your health care provider allows you to drink alcohol, limit how much you have to: ? 0???1 drink a day for women who are not . ? 0???2 drinks a day for men. ? Know how much alcohol is in your drink. In the [place] one drink equals one 12 oz bottle of beer (355mL), one 5 oz glass of wine (148 mL), or one 1?? oz glass of hard liquor (44 mL). ? Avoid drinking alcohol on an empty stomach. ? Alcohol increases urination. It is important to stay hydrated and avoid caffeine. ? Avoid drinking more than one drink per hour. ? When having multiple drinks, drink water or a non-alcoholic beverage between alcoholic drinks. General instructions ? Take ccza-cxm-wdzppsk and prescription medicines only as told by your health care provider. ? Do not drive after drinking any amount of alcohol. Plan for a designated oil transport driver or another way to go home. ? Have someone responsible stay with you while you are intoxicated. You should notbe left alone. Contact a health care provider if: ? You do not feel better after a few days. ? You have problems at work, at school, or at home due to drinking. Get help right away if: ? You have any of the following: ? Trouble staying awake. ? Moderate to severe trouble with coordination, speech, memory, or attention. ? You are told you may have had a seizure. ? Vomiting bright red blood or material that looks like coffee grounds. ? Bloody stool (feces). The blood may make your stool bright red, black, or tarry. These symptoms may be an emergency. Get help right away. Call 911. ? Do not wait to see if the symptoms will go away. ? Do not drive yourself to the hospital. Also, get help right away if: ? You have thoughts about hurting yourself or others. Take one of these steps if you feel like you may hurt yourself or others, or have thoughts about taking your own life: ? Call 911. ? Call the National Suicide Prevention Lifeline at or 188. This is open 24 hours a day. ? Text the Crisis Text Line at 119841. Summary ? Alcohol intoxication occurs when a person no longer thinks clearly or functions well after drinkingalcohol. ? Ask your health care provider if alcohol is safe for you. If your health care provider allows you to drink alcohol, limit how much you have. ? Contact your health care provider if drinking has caused you problems at work, school, or home. ? Get help right away if you have thoughts about hurting yourself or others. This information is not intended to replace advice given to you by your health care provider. Make sure you discuss any questions you have with your health care provider. Document Revised: 08/06/2022 Document Reviewed: 08/06/2022 Elsevier Patient Education ?? 2022 Elsevier Inc. Tests Performed Medications and Immunizations Administered Given Ativan, 1 mg, Oral Melatonin, 6 mg, Oral. For: Acute alcohol intoxication nicotine 21 mg/24 hr patch, extended release, 21 mg, Transdermal Lab Test Name Test Result Date/Time Ethanol Level 314 mg/dL 12/22/2023 22:47 EDT Patient/Plaster Form Maker Signature Patient Name:JUAN LUIS HOBBS I have received this information and my questions have been answered. Patient/Plaster Form Maker Name: Patient/Plaster Form Maker Signature: Relationship to Patient: Witness Name/Signature: Date: Electronically Signed on: 12/23/2023 05:00 EDT Signed by:SARAHY Patient Care team information Care Team Related Persons Name: ANJEL KIMMY Address: [address] [place], [id number]
== END 2024-01-24 01:30 | disposition left against medical advice (07) ==
LOC: HO.ED 01-24 01:26
PROVIDERS: Emergency Provider Emergency Medicine
DX: F10.920 Alcohol use, unspecified with intoxication, uncomplicated (principal); Y90.8 Blood alcohol level of 240 mg/100 ml or more; R20.2 Paresthesia of skin; R00.0 Tachycardia, unspecified; Z53.21 Procedure and treatment not carried out due to patient leaving prior to being seen by health care provider
CPT/HCPCS: 36415; 80053; 80307; 81001; 85027; 93005; 99281; 99283

== ENCOUNTER 2024-06-01 01:14 | Emergency (ER) | payer OTHER, SELFPAY ==
[2024-06-01 01:16] VITALS: BP 146/98; PULSE 125; RESP 16; TEMP 37.4; O2SAT 96; BMI 24.8
--- NOTE | 2024-06-01 01:21 | ECG_ITS ---
Test Reason : WITHDRAWAL Blood Pressure : / mmHG Vent. Rate : 107 BPM Atrial Rate : 107 BPM P-R Int : 150 ms QRS Dur : 078 ms QT Int : 322 ms P-R-T Axes : 049 026 023 degrees QTc Int : 429 ms Sinus tachycardia Cannot rule out Anterior infarct , age undetermined Abnormal ECG When compared with ECG of 23-JAN-2024 23:01, No significant change was found Referred By: Generic ED Physician Electronically Signed By:SANJUANA MOLINA MD
[2024-06-01 01:52] LABS: MANUAL DIFF FLAG NO
[2024-06-01 01:55] LABS: Basophils Absolute Auto 0.1 X10*3/uL (0.0-0.2); Basophils Percent Auto 0.5 % (0-2); Eosinophils Absolute Auto 0.2 X10*3/uL (0.0-0.4); Eosinophils Percent Auto 1.4 % (0-4); Hematocrit 43.5 % (42.0-52.0); Hemoglobin 15.5 g/dl (14.0-18.0); Imm Gran Abs Auto 0.03 X10*3/uL (0.00-0.03); Imm Gran Pct Auto 0.3 % (0.0-0.4); Lymphocytes Absolute Auto 2.1 X10*3/uL (1.2-4.9); Lymphocytes Percent Auto 17.3 % (20-40); Mean Corpuscular HGB Conc 35.6 g/dl (31.0-36.0); Mean Corpuscular Hemoglobin 29.1 pg (27.0-33.0); Mean Corpuscular Volume 81.8 fL (80.0-98.0); Mean Platelet Volume 9.3 fL (9.4-12.4); Monocytes Absolute Auto 0.9 X10*3/uL (0.1-1.2); Monocytes Percent Auto 7.8 % (2-11); Neutrophils Absolute Auto 8.7 x10*3/uL (2.0-8.3); Neutrophils Percent Auto 72.7 % (45-73); Platelet Count 244 X10*3/uL (160-400); Red Blood Count 5.32 X10*6/uL (4.60-5.80); Red Cell Distribution Width 12.1 % (11.0-16.0); White Blood Count 11.9 X10*3/uL (4.8-10.8)
[2024-06-01 02:08] LABS: Anion Gap 19 (12-20); Blood Urea Nitrogen 16 mg/dL (9-16); Calcium 9.4 mg/dL (8.4-10.2); Carbon Dioxide 21 mmol/L (22-29); Chloride 106 mmol/L (96-108); Estimated Glomerular Filt Rate > 60; Ethanol 309 mg/dL; Glucose Random 109 mg/dL (60-115); Potassium 3.6 mmol/L (3.3-5.1); Sodium 142 mmol/L (135-145)
== END 2024-06-01 03:37 | disposition left against medical advice (07) ==
PROVIDERS: Emergency Provider Emergency Medicine; PCP Internal Medicine
DX: R00.0 Tachycardia, unspecified (principal); Z53.21 Procedure and treatment not carried out due to patient leaving prior to being seen by health care provider
CPT/HCPCS: 36415; 80048; 80307; 85025; 93005; 99281; 99283

== ENCOUNTER → 2024-06-01 01:21 | Outpatient (BNV) | payer OTHER, SELFPAY | PROVIDERS: Emergency Provider Emergency Medicine; PCP Internal Medicine; Visit Provider Internal Medicine Cardiovascular Disease | DX: R94.31 Abnormal electrocardiogram [ECG] [EKG] (principal) | CPT/HCPCS: 93010 ==

== ENCOUNTER 2024-12-21 15:19 | Emergency (ER) | payer OTHER, SELFPAY ==
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
[2024-12-21 15:30] VITALS: BP 139/87; PULSE 98; RESP 18; TEMP 36.6; O2SAT 98; BMI 24.4
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
--- OUTSIDE RECORDS SUMMARY | 2024-12-21 16:21 | XMS_ITS | Clinical Summary ---
Author Organization [facility] Address [address] [place] [address] Care Team Providers Care Parquetry Layer Name Role Phone Unavailable Primary Care Provider Unavailabl e Social History Tobacco Use Types Packs/Day Years Used Date Smoking Tobacco: Never Assessed Sex and Gender Information Value Date Recorded Sex Assigned at Not on file Legal Sex Male 1:52 PM EDT Gender Identity Not on file Sexual Orientation Not on file Plan of Treatment Health Maintenance Due Date Last Done Comments Hepatitis C Virus Screening 1990 HIV Screening 10/26/2003 DTaP/Tdap/Td Vaccines (1 - Tdap) 2009 Hepatitis B Vaccines (1 of 3 - 19+ 3-dose series) 2009 COVID-19 Vaccine (2023-2 5 season) 2024 HPV Vaccines Aged Out No longer eligi ble based on patient's age to complete this topic Pneumococcal Vaccine: Pediat prabhu (0-5 Years) and At-Risk Patients (6 to 49 Years) Aged Out No longer eligible b ased on patient's age to complete this topic
--- OUTSIDE RECORDS SUMMARY | 2024-12-21 16:21 | XMS_ITS | Clinical Summary ---
Author Organization Formerly [facility] Address [address] [place] [phone] Phone Care Team Providers Care Open Claims Representative Name Role Phone Oh Sarmiento MD Primary Care Provider [phone] Allergies No known active allergies Medications pregabalin (LYRICA) 100 MG capsule Take 75 mg by mouth 3 (three) times a day. Active ibuprofen (ADVIL,MOTRIN) 600 MG tablet Take 1 tablet (600 mg total) by mouth 3 (three) times a day for 3 days. Then tid prn pain/inflammati on 30 tablet 2 Active cloNIDine HCL (CATAPRES) 0.1 MG tablet take 1 tablet by mouth everyday at bedtime 4 Active hydrOXYzine (VISTARIL) 25 MG capsule TAKE 1 CAPSULE BY MOUTH TWICE A DAY NEEDED FOR ANXIETY 4 Active nicotine (NICOTROL) 10 mg inhaler See Instructions, Use 1 cartridge by inhalation for 20 minutes 6 times a day, # 1 each, 1 Refills, Maintenance, 09/16/23 10:40:00 AM EDT, [id number], Partial fill upon patient request if the prescription is for a schedule II opioid drug., 183, cm, 09/16/23 10:15:00 EDT, Height, 68.5, kg, 04/16/23 3:21:00 EST, Dry Weight 4 Active Active Problems Problem Noted Date Diagnosed Date Anxiety 09/28/2024 Elevated transaminase level 09/28/2024 ETOH abuse 09/28/2024 H/O gastroesophageal reflux (GERD) 09/28/2024 Hypokalemia 09/28/2024 Recurrent vomiting 09/28/2024 Tobacco use disorder 09/28/2024 Vitamin D deficiency 09/28/2024 Encounters Date Type Department Care Team Description 09/28/2024 3:10 PM EDT Office Visit [facility] at [address] [address] Emma [place], ML Sebaceous cyst of axilla (Primary Dx) from Last 3 Months Immunizations Immunization Administration Dates Next Due DTaP 10/26/1994,05/03/1992,06/04/1991 ,03/02/1991,1990 IPV 12/11/2002,05/03/1992,06/04/1991 ,03/02/1991,1990 MMR 10/26/1994,02/16/1992 Tdap 07/01/2022,12/04/2007 Varicella 06/03/1993 Social History Tobacco Use Types Packs/Day Years Used Date Smoking Tobacco: Former Smokeless Tobacco: Never Tobacco Cessation:Counseling Given: Not Answered Education Answer Date Recorded Are you interested in more education? Not on jose e e 09/29/2022 Are you concerned about learning? Not on file 09/29/2022 No 09/29/2022 No 09/29/2022 Digital Access Answer Date Recorded No 10/28/2022 No 10/28/2022 Reliable internet access at home? Not on file 10/28/2022 Device with a working camera? Not on file Intimate Partner Violence Answer Date R ecorded Are you denied basic needs s uch as food, clothing, or medical care? No 02/20/2023 In the past 12 months have y ou been in a relationship with a person who hurts, threatens, or tries to control you? No 02/20/2023 Are you denied basic needs s uch as food, clothing, or medical care? No 02/20/2023 In the past 12 months have y ou been in a relationship with a person who hurts, threatens, or tries to control you? No 02/20/2023 Sex and Gender Information Value Date Recorded Sex Assigned at Male 04/29/2022 5:54 PM EST Legal Sex Male 10:18 AM EDT Gender Identity Male 04/29/2022 5:54 PM EST Sexual Orientation Not on file Last Filed Vital Signs Vital Sign Reading Time Taken Comments Blood Pressure 117/77 09/28/2024 3:39 PM EDT Pulse 87 09/28/2024 3:39 PM EDT Temperature 36.8 C (98.2 F) 09/28/2024 3:39 PM EDT Respiratory Rate 18 09/28/2024 3:39 PM EDT Oxygen Saturation 97% 09/28/2024 3:39 PM EDT Inhaled Oxygen Concentration - - Weight 81.6 kg (180 lb) 02/20/2023 1:53 AM EDT Height 182.9 cm (6') 02/20/2023 1:53 AM EDT Body Mass Index 24.41 02/20/2023 1:53 AM EDT Plan of Treatment Health Maintenance Due Date Last Done Comments DEPRESSION SCREENING 2002 SMOKING Hx and SMOKELESS TOBACCO SCREENING 10/26/2003 HEPATITIS C SCREENING 2008 HIV ONE-TIME SCREENING (18-6 5 YEARS) 2008 COVID-19 VACCINE ( - 2023-2 5 season) 2024 02/14/2021, 01/17/2021 Adult Td,Tdap Booster 07/01/2032 07/01/2022 , 12/04/2007 HEPATITIS A VACCINES Aged Out No long er eligible based on patient's age to complete this topic HIB VACCINES Aged Out No longer eligi ble based on patient's age to complete this topic MENINGOCOCCAL VACCINES (ACWY) Aged Out No longer eligible based on patient's age to complete this topic MENINGOCOCCAL VACCINES (B) Aged Out N o longer eligible based on patient's age to complete this topic PNEUMOCOCCAL VACCINES (0-49 years) Aged Out No longer eligible b ased on patient's age to complete this topic Medical Devices [place] [id number] [facility] Care Teams Open Claims Representative Relationship Specialty Start Date End Date hO Sarmiento MD [address] [place] [id number] PCP - General Internal Medicine 03/13/22 Additional Source Comments The information contained in this document represents components of the legal health record. It is not the complete legal health record.[facility]ly [facility]
--- OUTSIDE RECORDS SUMMARY | 2024-12-21 16:21 | XMS_ITS | Clinical Summary ---
Author Organization [facility] Address [address] [place] [address] Phone Care Team Providers Care Energy Conservation Specialist Name Role Phone Physician, No Pcp Primary Care Provider Unavaila ble Allergies No known active allergies Medications pregabalin (LYRICA) 75 mg capsule Take 1 capsule (75 mg total) by mouth 3 (three) times a day. Max Daily Amount: 225 mg Active hydrOXYzine HCL (ATARAX) 50 mg tablet Take 1 tablet (50 mg total) by mouth 3 (three) times a day. Active cloNIDine (CATAPRES) 0.1 mg tablet Take 1 tablet (0.1 mg total) by mouth 2 (two) times a day. Unknown frequency Active Active Problems Problem Noted Date Diagnosed Date [place] withdrawal [place] [place] [facility] [place] Encounters Date Type Department Care Team Description 12/01/2024 6:08 PM EDT - 12/02/2024 12:30 PM EDT Hospital Encounter [facility] [address] [place] [address] Jose Bill MD Kela, Kashyap Devendrabhai, MD Mohani, Priya, MD Alcohol abuse with withdrawal ([facility] V24, [facility] V28) (Primary Dx) Discharge Disposition: Home or Self Care 11/29/2024 1:15 PM EDT - 11/29/2024 3:54 PM EDT Emergency [facility] Emergency [address] [place] [address] Alcohol use disorder (Primary Dx); Benzodiazepine abuse ([facility] [place], [facility] V28) Discharge Disposition: Left Against Medical Advice from Last 3 Months Social History Tobacco Use Types Packs/Day Years Used Date Smoking Tobacco: Every Day Cigarettes Smokeless Tobacco: Current Tobacco Cessation:Ready to Q uit: Not Asked; Counseling Given: Not Answered Interpersonal Safety Answer Date Record ed Physical Abuse 12/02/2024 Verbal Abuse 12/02/2024 Sex and Gender Information Value Date Recorded Sex Assigned at Male 12/01/2024 7:18 PM EDT Legal Sex Male 12:21 AM EST Gender Identity Male 12/01/2024 7:18 PM EDT Sexual Orientation Straight 12/01/2024 7: 18 PM EDT Obstetrics History Last Filed Vital Signs Vital Sign Reading Time Taken Comments Blood Pressure 142/94 12/02/2024 7:56 AM EDT Pulse 74 12/02/2024 9:34 AM EDT Temperature 36.3 C (97.4 F) 12/02/2024 7:56 AM EDT Respiratory Rate 18 12/02/2024 7:56 AM EDT Oxygen Saturation 100% 12/02/2024 7:56 AM EDT Inhaled Oxygen Concentration - - Weight 81.6 kg (180 lb) 12/01/2024 5:52 PM EDT Height 185.4 cm (6' 1 ) 12/01/2024 5:52 PM EDT Body Mass Index 23.75 12/01/2024 5:52 PM EDT Plan of Treatment Health Maintenance Due Date Last Done Comments Hepatitis A Vaccines (1 of 2 - Risk 2-dose series) 2009 Pneumococcal Vaccine: Pediatrics (0 to 5 Years) and At-Risk Patients (6 to 49 Years) (1 of 2 - PCV) 2009 COVID-19 Vaccine (3 - season) 2024 02/14/2021, 01/17/2021 Depression Screening 06/03/2024 Cholesterol Screening (Lipid Panel) 11/29/2024 HIV Screening 11/29/2024 Hepatitis C Screening 11/29/2024 Social Influencers of Health Screening 11/29/2024 Influenza Vaccine (#1) 2025 DTaP,Tdap,and Td Vaccines (9 - Td or Tdap) 07/01/2032 07/01/2022, 12/04/2007, 12/11/2002, Additional history exists HIB Vaccines Aged Out 06/04/1991, 02/03, 1990 No longer eligible based on patient's age to complete this topic Varicella Vaccines Aged Out 06/03/1993 No longer eligible based on patient's age to complete this topic MMR Vaccines Completed 10/26/1994, 02/16/1992 Hepatitis B Vaccines Completed 07/09/2001, 08/22/2000, 07/22/2000 IPV Vaccines Completed 12/11/2002, 06/1991, 06/04/1991, Additional history exists Meningococcal ACWY Vaccine Completed 12/04/2007 HPV Vaccines Aged Out No longer eligi ble based on patient's age to complete this topic Meningococcal B Vaccine Aged Out No l onger eligible based on patient's age to complete this topic RSV Immunization Patients Under 20 months Aged Out No longer eligible based on patient's age to complete this topic Procedures Procedure Name Priority Date/Time Associated Diagnosis Comments ECG ANNOTATED 12/03/2024 CBC WITH AUTO DIFFERENTIAL Routine 12/02/2024 4:31 AM EDT CBC AND DIFFERENTIAL Routine 12/02/2024 4:31 AM EDT BASIC METABOLIC PANEL Routine 12/02/2024 4:31 AM EDT TIGER TOP URINE TUBE Routine 12/01/2024 9:35 PM EDT HINES URINE CULTURE TUBE Routine 12/01/2024 9:35 PM EDT EXTRA TUBES Routine 12/01/2024 9:35 PM EDT METHADONE SCREEN, URINE STAT 12/01/2024 9:35 PM EDT PHENCYCLIDINE, URINE STAT 12/01/2024 9:35 PM EDT BUPRENORPHINE SCREEN, URINE STAT 12/01/2024 9:35 PM EDT DRUG ABUSE SCREEN 8A PANEL, URINE STAT 12/01/2024 9:35 PM EDT CBC WITH AUTO DIFFERENTIAL STAT 12/01/2024 6:19 PM EDT CBC AND DIFFERENTIAL STAT 12/01/2024 6:19 PM EDT COMPREHENSIVE METABOLIC PANEL STAT 12/01/2024 6:19 PM EDT LIPASE STAT 12/01/2024 6:19 PM EDT MAGNESIUM STAT 12/01/2024 6:19 PM EDT ETHANOL STAT 12/01/2024 6:19 PM EDT ECG 12-LEAD STAT 12/01/2024 6:00 PM EDT ECG ANNOTATED 11/30/2024 ECG 12-LEAD STAT 11/29/2024 1:43 PM EDT CBC WITH AUTO DIFFERENTIAL STAT 11/29/2024 1:18 PM EDT CBC AND DIFFERENTIAL STAT 11/29/2024 1:18 PM EDT COMPREHENSIVE METABOLIC PANEL STAT 11/29/2024 1:18 PM EDT LIPASE STAT 11/29/2024 1:18 PM EDT MAGNESIUM STAT 11/29/2024 1:18 PM EDT ETHANOL STAT 11/29/2024 1:18 PM EDT from Last 3 Months Results * ECG-Annotated (12/03/2024) Only the most recent of2 resultswithin the time period is included. us Provider Onbase MD ECG ORDERABLES Final Result * (ABNORMAL) CBC auto differential (12/02/2024 4:31 AM EDT) Only the most recent of3 resultswithin the time period is included. WBC 5.8 4.8 - 10.8 K/mcL LAB HEMETOLOGY METHOD 12/02/2024 5:18 AM [facility] RBC 4.30(L) 4.50 - 5.50 M/mcL LAB HEMETOLOGY METHOD 12/02/2024 5:18 AM [facility] Hemoglobin 12.8(L) 13.5 - 17.5 g/dL LAB HEMETOLOGY METHOD 12/02/2024 5:18 AM [facility] Hematocrit 38.6(L) 42.0 - 54.0 % LAB HEMETOLOGY METHOD 12/02/2024 5:18 AM [facility] MCV 89.6 79.0 - 98.0 FL LAB HEMETOLOGY METHOD 12/02/2024 5:18 AM [facility] MCH 29.7 27.0 - 32.0 pcg LAB HEMETOLOGY METHOD 12/02/2024 5:18 AM [facility] MCHC 33.2 32.0 - 37.0 g/dL LAB HEMETOLOGY METHOD 12/02/2024 5:18 AM [facility] RDW 17.8(H) 11.0 - 15.0 % LAB HEMETOLOGY METHOD 12/02/2024 5:18 AM [facility] Platelets 148 130 - 400 K/mcL LAB HEMETOLOGY METHOD 12/02/2024 5:18 AM [facility] MPV 9.6 7.0 - 11.0 FL LAB HEMETOLOGY METHOD 12/02/2024 5:18 AM [facility] NRBC 0.0 <1.0 % LAB HEMETOLOGY METHOD 12/02/2024 5:18 AM [facility] NRBC Absolute 0.00 <0.10 K/mcL LAB HEMETOLOGY METHOD 12/02/2024 5:18 AM [facility] Neutrophils Relative 64.1 % LAB HEMETOLOGY METHOD 12/02/2024 5:18 AM [facility] Lymphocytes Relative 19.6 % LAB HEMETOLOGY METHOD 12/02/2024 5:18 AM [facility] Monocytes Relative 11.3 % LAB HEMETOLOGY METHOD 12/02/2024 5:18 AM [facility] Eosinophils Relative 3.6 % LAB HEMETOLOGY METHOD 12/02/2024 5:18 AM [facility] Basophils Relative 0.9 % LAB HEMETOLOGY METHOD 12/02/2024 5:18 AM [facility] Immature Granulocytes Relative 0.5 % LAB HEMETOLOGY METHOD 12/02/2024 5:18 AM [facility] Neutrophils Absolute 3.70 1.50 - 7.00 K/mcL LAB HEMETOLOGY METHOD 12/02/2024 5:18 AM [facility] Lymphocytes Absolute 1.13 1.00 - 5.00 K/mcL LAB HEMETOLOGY METHOD 12/02/2024 5:18 AM [facility] Monocytes Absolute 0.65 0.20 - 1.00 K/mcL LAB HEMETOLOGY METHOD 12/02/2024 5:18 AM [facility] Eosinophils Absolute 0.21 0.00 - 0.50 K/mcL LAB HEMETOLOGY METHOD 12/02/2024 5:18 AM [facility] Basophils Absolute 0.05 0.00 - 0.20 K/mcL LAB HEMETOLOGY METHOD 12/02/2024 5:18 AM [facility] Immature Granulocytes Absolute 0.03 0.00 - 0.03 K/mcL LAB HEMETOLOGY METHOD 12/02/2024 5:18 AM [facility] Blood Venous blood specimen / Unknown Venipuncture / Unknown 12/02/2024 4:31 AM EDT 12/02/2024 5:03 AM EDT Catina REBOLLEDO LAB BLOOD ORDERABLES Fi nal Result [facility] [address] [place] [address], [place] [phone] * (ABNORMAL) Basic metabolic panel (12/02/2024 4:31 AM EDT) Pathologist [facility] Sodium 139 133 - 145 mmol/L LAB CHEMISTRY METHOD 12/02/2024 5:55 AM T [facility] Potassium 3.5 3.5 - 5.5 mmol/L LAB CHEMISTRY METHOD 12/02/2024 5:55 AM [facility] Chloride 108 96 - 110 mmol/L LAB CHEMISTRY METHOD 12/02/2024 5:55 AM [facility] CO2 24 21 - 32 mmol/L LAB CHEMISTRY METHOD 12/02/2024 5:55 AM [facility] Anion Gap 7 3 - 11 LAB CHEMISTRY METHOD 12/02/2024 5:55 AM [facility] Glucose 110(H) 70 - 100 mg/dL LAB CHEMISTRY METHOD 12/02/2024 5:55 AM [facility] BUN 6 5 - 25 mg/dL LAB CHEMISTRY METHOD 12/02/2024 5:55 AM [facility] Creatinine 0.60(L) 0.70 - 1.30 mg/dL LAB CHEMISTRY METHOD 12/02/2024 5:55 AM [facility] eGFR 130 >=60 mL/min/1. 73m2 LAB CHEMISTRY METHOD 12/02/2024 5:55 AM [facility] Comment:Calculation based on the Chronic Kidney Disease Epidemiology Collaboration (CKD-EPI) equation refit without adjustment for race. BUN/Creatinine Ratio 10.0 LAB CHEMISTRY METHOD 12/02/2024 5:55 AM EDT [facility] Calcium 8.1(L) 8.5 - 10.5 mg/dL LAB CHEMISTRY METHOD 12/02/2024 5:55 AM EDT [facility] Blood Venous blood specimen / Unknown Venipuncture / Unknown 12/02/2024 4:31 AM EDT 12/02/2024 5:02 AM EDT us Catina REBOLLEDO LAB BLOOD ORDERABLES Fi nal Result Performing Organization Address [facility]/ZIP Co de Phone Number [facility] [address] [place] [address], [place] [phone] * Hines urine culture tube (12/01/2024 9:35 PM EDT) Extra Tube Hold for add-ons. 12/02/2024 12:01 AM EDT [facility] Comment:Auto resulted. Urine Urine specimen obtained by clean catch procedure / Unknown 12/01/2024 9:35 PM EDT 12/01/2024 10:36 PM EDT Jose Bill MD LAB URINE ORDERABLES Final Result Performing Organization Address [facility]/ZIP Co de Phone Number [facility] [address] [place] [address], [place] [phone] * Moroni top urine tube (12/01/2024 9:35 PM EDT) Extra Tube Hold for add-ons. 12/02/2024 12:01 AM EDT [facility] Comment:Auto resulted. Urine Urine specimen obtained by clean catch procedure / Unknown 12/01/2024 9:35 PM EDT 12/01/2024 10:36 PM EDT Jose Bill MD LAB URINE ORDERABLES Final Result [facility] [address] [place] [address], [place] [phone] * (ABNORMAL) Drug abuse screen 8a panel, urine (12/01/2024 9:35 PM EDT) Amphetamine Screen, Ur Negative Negative LAB CHEMISTRY METHOD 5 10:58 PM EDT [facility] Comment:Certain OTC medicati ons containing ephedrine, phenylephrine, pseudoephedrine and phenylpropanolamine can cause false positive results. Barbiturate Screen, Ur Negative Negative LAB CHEMISTRY METHOD 5 10:58 PM EDT [facility] Benzodiazepine Screen, Ur Negative Negative LAB CHEMISTRY METHOD 10:58 PM EDT [facility] Cocaine Screen, Ur Negative Negative LAB CHEMISTRY METHOD 5 10:58 PM EDT [facility] Opiate Screen, Ur Negative Negative LAB CHEMISTRY METHOD 10:58 PM EDT [facility] Cannabinoid (THC) Screen, Ur Positive(A ) Negative LAB CHEMISTRY METHOD 10:58 PM EDT [facility] Comment:Specimens from patie nts taking pantoprazole sodium (Protonix) have been shown to produce false positive results. Oxycodone Screen, Ur Negative Negative LAB CHEMISTRY METHOD 5 10:58 PM EDT [facility] Fentanyl, Ur Negative Negative LAB CHEMISTRY METHOD 10:58 PM EDT [facility] Urine Urine specimen obtained by clean catch procedure / Unknown Non-blood Collection / Unknown 12/01/2024 9:35 PM EDT 12/01/2024 10:33 PM EDT Narrative [facility] - 12/01/2024 10:58 PM EDT Assay cutoffs: Amphetamines 1000 ng/mL Barbiturates 200 ng/mL Benzodiazepines 200 ng/mL Cocaine 300 ng/mL Fentanyl 1 ng/mL Opiates 300 ng/mL Oxycodone 100 ng/mL THC 50 ng/mL Semi-quantitative assay for screening purposes only. Unconfirmed screening result should not be used for non-medical purposes. *ALTERNATE METHOD CONFIRMATION DONE UPON REQUEST ONLY* Jose Bill MD LAB URINE ORDERABLES Final Result Performing Organization Address [facility]/ZIP Co de Phone Number [facility] [address] [place] [address], * Buprenorphine screen, urine (12/01/2024 9:35 PM EDT) Buprenorphine Screen Urine Negative Negative LAB CHEMISTRY METHOD 12/01/2024 10:58 PM EDT [facility] Urine Urine specimen obtained by clean catch procedure / Unknown Non-blood Collection / Unknown 12/01/2024 9:35 PM EDT 12/01/2024 10:33 PM EDT Narrative [facility] - 12/01/2024 10:58 PM EDT Assay cutoff 5 ng/mL Semi-quantitative assay for screening purposes only. Unconfirmed screening result should not be used for non-medical purposes. *ALTERNATE METHOD CONFIRMATION DONE UPON REQUEST ONLY* Jose Bill MD LAB URINE ORDERABLES Final Result Performing Organization Address [facility] Co de Phone Number [facility] [address] [place] [address], * Methadone, urine (12/01/2024 9:35 PM EDT) Methadone Screen, Urine Negative Negative LAB CHEMISTRY METHOD 12/01/2024 10:58 PM EDT [facility] Comment: Assay cutoff 300 ng/mL Semi-quantitative assay for screening purposes only. Unconfirmed screening result should not be used for non-medical purposes. *ALTERNATE METHOD CONFIRMATION DONE UPON REQUEST ONLY* Urine Urine specimen obtained by clean catch procedure / Unknown Non-blood Collection / Unknown 12/01/2024 9:35 PM EDT 12/01/2024 10:33 PM EDT Jose Bill MD LAB URINE ORDERABLES Final Result Performing Organization Address [facility]/ZIP Co de Phone Number [facility] [address] [place] [address], [place] [phone] * Phencyclidine, urine (12/01/2024 9:35 PM EDT) PCP Scrn, Ur Negative Negative LAB CHEMISTRY METHOD 12/01/2024 10:58 PM EDT [facility] Comment: Assay cutoff 25 ng/mL Semi-quantitative assay for screening purposes only. Unconfirmed screening result should not be used for non-medical purposes. *ALTERNATE METHOD CONFIRMATION DONE UPON REQUEST ONLY* Urine Urine specimen obtained by clean catch procedure / Unknown Non-blood Collection / Unknown 12/01/2024 9:35 PM EDT 12/01/2024 10:33 PM EDT Jose Bill MD LAB URINE ORDERABLES Final Result Performing Organization Address [facility] de Phone Number [facility] [address] [place] [address], [place] [phone] * Magnesium (12/01/2024 6:19 PM EDT) Only the most recent of2 resultswithin the time period is included. Pathologist [facility] Magnesium 2.2 1.9 - 2.6 mg/dL LAB CHEMISTRY METHOD 12/01/2024 7:05 PM EDT [facility] Blood Venous blood specimen / Unknown Venipuncture / Unknown 12/01/2024 6:19 PM EDT 12/01/2024 6:33 PM EDT Jose Bill MD LAB BLOOD ORDERABLES Final Result Performing Organization Address City/[facility]/ZIP Co de Phone Number [facility] [address] [place] [address], [place] [phone] * Lipase (12/01/2024 6:19 PM EDT) Only the most recent of2 resultswithin the time period is included. Lipase 58 13 - 75 unit/L LAB CHEMISTRY METHOD 12/01/2024 7:05 PM EDT [facility] Blood Venous blood specimen / Unknown Venipuncture / Unknown 12/01/2024 6:19 PM EDT 12/01/2024 6:33 PM EDT us Jsoe Bill MD LAB BLOOD ORDERABLES Final Result Performing Organization Address [facility] Co de Phone Number [facility] [address] [place] [address], [place] [phone] * (ABNORMAL) Ethanol (12/01/2024 6:19 PM EDT) Only the most recent of2 resultswithin the time period is included. Ethanol Level 282(H) 0 - 10 mg/dL LAB CHEMISTRY METHOD 12/01/2024 7:05 PM EDT [facility] Blood Venous blood specimen / Unknown Venipuncture / Unknown 12/01/2024 6:19 PM EDT 12/01/2024 6:33 PM EDT us Jose Bill MD LAB BLOOD ORDERABLES Final Result Performing Organization Address City/[facility]/ZIP Co de Phone Number [facility] [address] [place] [address], [place] [phone] * (ABNORMAL) Comprehensive metabolic panel (12/01/2024 6:19 PM EDT) Only the most recent of2 resultswithin the time period is included. Sodium 139 133 - 145 mmol/L LAB CHEMISTRY METHOD 12/01/2024 7:12 PM EDT [facility] Potassium 3.7 3.5 - 5.5 mmol/L LAB CHEMISTRY METHOD 12/01/2024 7:12 PM [facility] Chloride 107 96 - 110 mmol/L LAB CHEMISTRY METHOD 12/01/2024 7:12 PM [facility] CO2 21 21 - 32 mmol/L LAB CHEMISTRY METHOD 12/01/2024 7:12 PM [facility] Anion Gap 11 3 - 11 LAB CHEMISTRY METHOD 12/01/2024 7:12 PM [facility] Glucose 106(H) 70 - 100 mg/dL LAB CHEMISTRY METHOD 12/01/2024 7:12 PM [facility] BUN 3(L) 5 - 25 mg/dL LAB CHEMISTRY METHOD 12/01/2024 7:12 PM [facility] Creatinine 0.68(L) 0.70 - 1.30 mg/dL LAB CHEMISTRY METHOD 12/01/2024 7:12 PM [facility] eGFR 125 >=60 mL/min/1. 73m2 LAB CHEMISTRY METHOD 12/01/2024 7:12 PM [facility] Comment:Calculation based on the Chronic Kidney Disease Epidemiology Collaboration (CKD-EPI) equation refit without adjustment for race. BUN/Creatinine Ratio 4.4 LAB CHEMISTRY METHOD 12/01/2024 7:12 PM [facility] Calcium 9.3 8.5 - 10.5 mg/dL LAB CHEMISTRY METHOD 12/01/2024 7:12 PM [facility] AST (SGOT) 70(H) 10 - 42 unit/L LAB CHEMISTRY METHOD 12/01/2024 7:12 PM [facility] ALT (SGPT) 73(H) 10 - 60 unit/L LAB CHEMISTRY METHOD 12/01/2024 7:12 PM [facility] Alkaline Phosphatase 151(H) 42 - 121 unit/L LAB CHEMISTRY METHOD 12/01/2024 7:12 PM EDT [facility] Total Protein 7.6 6.0 - 8.0 g/dL LAB CHEMISTRY METHOD 12/01/2024 7:12 PM EDT [facility] Albumin 4.0 3.2 - 5.0 g/dL LAB CHEMISTRY METHOD 12/01/2024 7:12 PM EDT [facility] Total Bilirubin 0.4 0.0 - 1.4 mg/dL LAB CHEMISTRY METHOD 12/01/2024 7:12 PM EDT [facility] Blood Venous blood specimen / Unknown Venipuncture / Unknown 12/01/2024 6:19 PM EDT 12/01/2024 6:33 PM EDT Jose Bill MD LAB BLOOD ORDERABLES Final Result Performing Organization Address City/[facility]/ZIP Co de Phone Number [facility] [address] [place] [address], [place] [phone] * ECG 12 lead (12/01/2024 6:00 PM EDT) Only the most recent of2 resultswithin the time period is included. Ventricular Rate ECG 113 BPM GEMUSE Atrial Rate 113 BPM GEMUSE P-R Interval 140 ms GEMUSE QRS Duration 76 ms GEMUSE Q-T Interval 310 ms GEMUSE QTc 425 ms GEMUSE P Wave Cheney 46 degrees GEMUSE R Cheney 19 degrees GEMUSE T Cheney 33 degrees GEMUSE ECG Interpretation Sinus tachycardia Possible Left atrial enlargement When compared with ECG of 29-NOV-2024 13:43, No significant change was found Confirmed by NATACHA CASH ([id number]) on 12/03/2024 5:16:55 AM GEMUSE 12/01/2024 6:00 PM EDT 12/03/2024 5:16 AM EDT Jose Bill MD ECG ORDERABLES Final Resul t GEMUSE from Last 3 Months Insurance [facility] MEDICAID ADVANTAGE [place] [id number] Advance Directives * Full Code - Default (Latest Code Status on File) Date Activated Date Inactivated Comments 12/01/2024 9:08 PM 12/02/2024 3:16 PM This is order is used when code status has not been discussed with the patient, or code status is otherwise unknown/unconfirmed To update the patient's code status, place a code status order. Do not modify or discontinue any currently active code status orders. Care Teams Energy Conservation Specialist Relationship Specialty Start Date End Date Physician, No Pcp PCP - General 11/29/24
--- OUTSIDE RECORDS SUMMARY | 2024-12-21 16:21 | XMS_ITS | Encounter Summary ---
Author Organization [facility] Address [address] [place] [phone] Phone Care Team Providers Care Rural Carrier Associate Name Role Phone Unavailable Primary Care Provider Unavailabl e Encounter Details Date Type Department Care Team (Late st Contact Info) Description 10/20/2017 Conversion [facility]counter [facility] [address] [place] [id number] Social History Tobacco Use Types Packs/Day Years Used Date Smoking Tobacco: Never Assessed Sex and Gender Information Value Date Recorded Sex Assigned at Not on file Legal Sex Male 6:18 PM EDT Gender Identity Not on file Sexual Orientation Not on file documented as of this encounter Plan of Treatment Not on file documented as of this encounter Visit Diagnoses Not on filedocumented in this encounter
[2024-12-21 17:16] VITALS: BP 139/87; PULSE 98; RESP 18; TEMP 36.6; O2SAT 98
--- NOTE | 2024-12-21 17:22 | PC.NURSE ---
10ml syringe provided for home wound irrigation
== END 2024-12-21 17:24 | disposition home or self-care (01) ==
PROVIDERS: Emergency Provider Emergency Medicine
DX: S06.0X0A Concussion without loss of consciousness, initial encounter (principal); S01.111A Laceration without foreign body of right eyelid and periocular area, initial encounter; S01.01XA Laceration without foreign body of scalp, initial encounter; Y04.2XXA Assault by strike against or bumped into by another person, initial encounter; H11.31 Conjunctival hemorrhage, right eye; Y93.89 Activity, other specified; Y92.9 Unspecified place or not applicable; Y99.9 Unspecified external cause status
CPT/HCPCS: 99283; 99284